=== PATIENT | female | born 1960 | race Caucasian/White ===

== ENCOUNTER → 2021-10-22 15:09 | Outpatient (BNVA) | payer MEDICARE, SELFPAY | PROVIDERS: Visit Provider Nurse Practitioner Family | DX: R10.2 Pelvic and perineal pain (principal) | CPT/HCPCS: 81003; 87086 ==

== ENCOUNTER → 2021-10-29 15:25 | Outpatient (BNVA) | payer MEDICARE, SELFPAY | PROVIDERS: Visit Provider Nurse Practitioner Family | DX: I10 Essential (primary) hypertension (principal); Z87.440 Personal history of urinary (tract) infections; F41.8 Other specified anxiety disorders | CPT/HCPCS: 80053; 80061; 81000; 84443; 85025 ==

== ENCOUNTER → 2022-02-03 12:43 | Outpatient (BNVA) | payer MEDICARE, SELFPAY | PROVIDERS: Visit Provider Internal Medicine | DX: L40.9 Psoriasis, unspecified (principal); M25.50 Pain in unspecified joint; Z11.59 Encounter for screening for other viral diseases; Z11.1 Encounter for screening for respiratory tuberculosis | CPT/HCPCS: 36415; 72202; 73120; 73560; 73600; 73620; 80053; 81003; 82550; 85025; 85651; 86140; 86160; 86162; 86200; 86235; 86255; 86376; 86431; 86480; 86704; 86803; 87340; 99204 ==

== ENCOUNTER → 2022-03-19 13:59 | Outpatient (BNVA) | payer MEDICARE, SELFPAY | PROVIDERS: PCP Internal Medicine; Visit Provider Internal Medicine | DX: L40.9 Psoriasis, unspecified (principal); M25.50 Pain in unspecified joint | CPT/HCPCS: 99214 ==

== ENCOUNTER 2022-04-20 08:32 | Day surgery (SDC) | payer MEDICARE, SELFPAY ==
[2022-04-16 11:56] VITALS: BMI 33.2
--- NOTE | 2022-04-20 07:46 | W.PM.OPSFHP ---
Same Day Surgery H&P Indication for Procedure/HPI DATE OF PROCEDURE: April 20, 2022 CHIEF COMPLAINT/INDICATIONFOR SURGICAL PROCEDURE: History of polyps PREOP DIAGNOSIS: History of polyps PLANNED PROCEDURE: Operation Date: 04/20/22 10:00 Proposed Procedures p Colonoscopy 74943,Z86.010(Not Applicable) - Joshua Perry MD Medications/Allergies* Home Medications Medication Instructions Recorded Confirmed Type alprazolam 0.25 mg tablet 0.25 mg PO BID PRN Anxiety 10/22/21 04/16/22 History calcium carbonate 500 mg calcium 500 mg PO DAILY 10/22/21 04/16/22 History (1,250 mg) chewable tablet (Calcium 500) docusate sodium 100 mg capsule 100 mg PO DAILY 10/22/21 04/16/22 History (Stool Softener) lactobacillus combination no.9 4 4,000 mmu cells PO DAILY 10/22/21 04/16/22 History billion cell capsule (Adult 50 Plus Probiotic) multivitamin 1 tab PO DAILY 10/22/21 04/16/22 History sumatriptan succinate 50 mg tablet See Rx Instructions PO .COMPLEX 10/22/21 04/16/22 History (Imitrex) vitamin B complex (B 1 tab PO DAILY 10/22/21 04/16/22 History Complex-Vitamin B12 tablet) vitamin E 200 unit capsule 200 unit PO DAILY 10/22/21 04/16/22 History hydrocodone 10 mg-acetaminophen 1 tab PO Q6H PRN Pain 02/03/22 04/16/22 History 325 mg tablet Allergies/Adverse Reactions Allergy/AdvReac Type Severity Reaction Status Date / Time No Known Allergies Allergy Verified 03/26/22 15:51 Pertinent History/Comorbid Conditions* Medical History (Updated 03/26/22 @ 15:56 by Joshua Perry MD) Hypertension Family History (Updated 10/22/21 @ 14:57 by Dena Hendricks LPN) Diabetes Father Hyperlipidemia Mother Cancer Father Mother BREAST Hypertension Father Social History Smoking and tobacco status: former smoker Alcohol intake: current Alcohol intake frequency: holidays/special occasions only Pertinent Exam Findings alert, oriented x 3, clear to auscultation bilaterally, regular rate & rhythm, operative site marked and procedure specific exam findings Recommendations Surgery/Procedure today Coding Level of Care Code Acute Transfer Clerk for Sim Young
[2022-04-20 09:16] VITALS: BP 126/80; PULSE 93; RESP 18; TEMP 36.1; O2SAT 96
[2022-04-20] MEDS: sodium chloride 0.9% 1,000 ML 30 ML IV (09:21)
--- NOTE | 2022-04-20 09:23 | P.ANESASSM_ITS ---
Pre-Anesthetic Assessment Height/Weight: Height 1.75 m Weight 102.058 kg Temp Pulse Resp BP Pulse Ox O2 Del Method 97.0 F L 93 18 126/80 96 04/20/22 09:16 04/20/22 09:16 04/20/22 09:16 04/20/22 09:16 04/20/22 09:16 04/20/22 09:16 Preop Diagnosis: personal history of polyps Operation Date: 04/20/22 10:00 Proposed Procedures p Colonoscopy 61896,Z86.010(Not Applicable) - Joshua Perry MD Familial anesthetic complications: None Was Beta Aristeo taken within 24 hours: N/A Was Clonidine taken within 24 hours: N/A Last intake: Intake Last Liquid Date 04/19/22 Last Liquid Time 22:00 Last Solid Date 04/18/22 Last Solid Time 23:00 Social Alcohol (Social) and No tobacco (Quit 1 year ago) Exam alert, oriented x 3, clear to auscultation bilaterally and regular rate & rhythm Airway Submandibular: within normal limits Cervical ROM: within normal limits Mallampati: Class III Dentition: loose (Left lower) History/ROS No significant history except as noted and No significant complaints Pulmonary Chronic Obstructive Pulmonary Disease and Exertional Dyspnea CV/HEM Arrythmia and Hypertension None reported Hepatic None reported GI None reported Metabolic Morbid Obesity [facility] [place] Lower Back Pain (Back surgery 01/2021) and Rheumatoid Arthritis Uses a cane to walk Neuropsych Anxiety, Depression and Neuropathy Anesthetic Plan ASA status: 3 Anesthesia: Anesthesia Evaluation, General and MAC Risk of > 500 ml blood loss (7ml/kg in children): No Medications/Allergies Home Medications Medication Instructions Recorded Confirmed Last Taken Type alprazolam 0.25 mg tablet 0.25 mg PO BID PRN Anxiety 10/22/21 04/20/22 1 Week Ago History ~04/13/22 calcium carbonate 500 mg calcium 500 mg PO DAILY 10/22/21 04/16/22 04/19/22 History (1,250 mg) chewable tablet (Calcium 500) docusate sodium 100 mg capsule 100 mg PO DAILY 10/22/21 04/16/22 04/19/22 History (Stool Softener) lactobacillus combination no.9 4 4,000 mmu cells PO DAILY 10/22/21 04/16/22 04/19/22 History billion cell capsule (Adult 50 Plus Probiotic) multivitamin 1 tab PO DAILY 10/22/21 04/16/22 04/19/22 History sumatriptan succinate 50 mg tablet See Rx Instructions PO .COMPLEX 10/22/21 04/20/22 1 Year Ago History (Imitrex) ~04/20/21 vitamin B complex (B 1 tab PO DAILY 10/22/21 04/16/22 04/19/22 History Complex-Vitamin B12 tablet) vitamin E 200 unit capsule 200 unit PO DAILY 10/22/21 04/16/22 04/19/22 History losartan 100 1 tab PO DAILY #90 tabs 10/29/21 04/16/22 04/20/22 06:00 Rx mg-hydrochlorothiazide 12.5 mg tablet fluconazole 150 mg tablet 150 mg PO Q3D 2 doses #2 tabs 10/30/21 04/16/22 04/19/22 Rx pseudoephedrine-guaifenesin ER 60 1 tab PO BID PRN cold symptoms #30 11/17/21 04/20/22 1 Year Ago Rx mg-600 mg tablet,extend release tabs ~04/20/21 12hr (Mucinex D) cyclobenzaprine 10 mg tablet See Rx Instructions .Route 01/20/22 04/16/22 04/19/22 Rx .COMPLEX #30 tabs hydrocodone 10 mg-acetaminophen 1 tab PO Q6H PRN Pain 02/03/22 04/16/22 04/18/22 History 325 mg tablet hydroxyzine HCl 10 mg tablet 10 mg PO TID PRN itching #20 tabs 03/19/22 04/20/22 Unknown Rx nystatin 100,000 unit/gram topical 1 applic topical DAILY #30 grams 03/19/22 04/16/22 04/19/22 Rx powder triamcinolone acetonide 0.1 % 1 applic topical DAILY #30 grams 03/19/22 04/16/22 04/19/22 Rx topical cream atorvastatin 40 mg tablet (Lipitor) 40 mg PO DAILY #90 tabs 03/26/22 04/16/22 04/19/22 Rx meloxicam 15 mg tablet 15 mg PO DAILY #90 tabs 03/26/22 04/16/22 04/19/22 Rx adalimumab 40 mg/0.8 mL 40 mg (0.8 mL) SUBCUT Q14D #4 ea 04/14/22 04/16/22 04/19/22 Rx subcutaneous pen kit (Humira Pen) venlafaxine 150 mg 150 mg PO DAILY 04/20/22 04/16/22 04/19/22 History capsule,extended release 24 hr (Effexor XR) Allergies Allergy/AdvReac Type Severity Reaction Status Date / Time No Known Allergies Allergy Verified 03/26/22 15:51 Current Medications Generic Name Dose Route Start Last Admin Trade Name Oliverq PRN Reason Stop Dose Admin Sodium Chloride 1,000 mls @ 30 mls/hr 04/20/22 08:45 04/20/22 09:21 Sodium Chloride 0.9% IV 30 mls/hr .Q24H FELIX Administration PFSH Anesthesia Medical History Hypertension Family History Father Diabetes Cancer Hypertension Mother Cancer BREAST Hyperlipidemia Social History Smoking and tobacco status: former smoker Alcohol intake: current Alcohol intake frequency: holidays/special occasions only Data Anesthesia Cardiac Studies: No Data to Display
[2022-04-20 10:08] VITALS: BP 151/74; PULSE 76; RESP 12; TEMP 36.2; O2SAT 100
[2022-04-20 10:25] VITALS: BP 130/79; PULSE 80; RESP 18; O2SAT 97
--- NOTE | 2022-04-20 14:48 | ANE.PACU2 ---
Inpatient post-anesthesia follow up: Airway intact: Yes Vital signs: Temperature 97.2 F Pulse Rate 80 Respiratory Rate 18 Blood Pressure 130/79 Pulse Oximetry 97 Oxygen Delivery Me thod Room Air Oxygen Flow Rate Fraction of Inspir ed Oxygen Hydration adequate: Yes Pain level: 1 Mental status: Baseline
== END 2022-04-20 10:33 | disposition home or self-care (01) ==
PROVIDERS: PCP Internal Medicine; Visit Provider Internal Medicine
PROC: 0DJD8ZZ Inspection of Lower Intestinal Tract, Via Natural or Artificial Opening Endoscopic (ICD-10-PCS; CPT 45378; principal; 2022-04-20 10:00)
DX: Z86.010 Personal history of colon polyps (principal); J44.9 Chronic obstructive pulmonary disease, unspecified; I10 Essential (primary) hypertension; E66.01 Morbid (severe) obesity due to excess calories; Z68.33 Body mass index [BMI] 33.0-33.9, adult; F41.9 Anxiety disorder, unspecified; F32.A Depression, unspecified; Z87.891 Personal history of nicotine dependence
CPT/HCPCS: 45378; J2704; J7030

== ENCOUNTER → 2022-05-26 10:12 | Outpatient (BNVA) | payer MEDICARE, SELFPAY | PROVIDERS: PCP Family Medicine Adult Medicine; Visit Provider Internal Medicine | DX: L40.9 Psoriasis, unspecified (principal); M25.50 Pain in unspecified joint | CPT/HCPCS: 36415; 80053; 85025; 85651; 86140; 99214 ==

== ENCOUNTER → 2022-11-05 15:14 | Outpatient (BNVA) | payer MEDICARE, BC, SELFPAY | PROVIDERS: PCP Family Medicine Adult Medicine; Visit Provider Internal Medicine | DX: L40.50 Arthropathic psoriasis, unspecified (principal); M25.50 Pain in unspecified joint; M79.673 Pain in unspecified foot; L40.9 Psoriasis, unspecified; M54.2 Cervicalgia | CPT/HCPCS: 36415; 72040; 80053; 85025; 85651; 86140; 99214 ==

== ENCOUNTER → 2023-03-03 15:14 | Outpatient (BNVA) | payer MEDICARE, SELFPAY | PROVIDERS: PCP Family Medicine Adult Medicine; Visit Provider Internal Medicine | DX: M25.50 Pain in unspecified joint (principal); L40.50 Arthropathic psoriasis, unspecified; L40.9 Psoriasis, unspecified; M54.2 Cervicalgia; M79.673 Pain in unspecified foot | CPT/HCPCS: 99214 ==

== ENCOUNTER 2023-03-31 08:57 | Outpatient (CLI) | payer MEDICARE, SELFPAY ==
[2023-03-31 09:16] LABS: Basophils % 0.4 %; Eosinophils # 0.2 10^3/uL (0.0-0.8); Eosinophils % 2.2 %; Hematocrit 40.3 % (36-47); Lymphocytes # 3.9 10^3/uL (0.8-4.8); Lymphocytes % 48.1 %; Mean Corpuscular HGB Conc 33.7 g/dL (30-55); Mean Corpuscular Hemoglobin 33.7 pg (27-33); Mean Platelet Volume 9.1 fL (7.4-10.4); Monocytes # 0.7 10^3/uL (0.2-0.9); Monocytes % 8.7 %; Neutrophils # 3.28 10^3/uL (1.8-7.7); Neutrophils % 40.4 %; Nucleated Red Blood Cells % 0 %; Platelet Count 282 10^3/cmm (157-399); Red Blood Count 4.03 10^6/uL (3.85-5.65); Red Cell Distribution Width 13.5 % (12.1-15.1); White Blood Count 8.13 10^3/uL (3.29-11.43)
[2023-03-31 09:40] LABS: Alanine Aminotransferase 26 U/L (0-33); Albumin Level 4.5 g/dL (3.5-5.2); Alkaline Phosphatase 59 U/L (35-105); Anion Gap 13.9 (5-19); Aspartate Amino Transferase 18 U/L (0-32); Blood Urea Nitrogen 16 mg/dL (8-23); Calcium 9.5 mg/dL (8.5-10.5); Carbon Dioxide 27 mmol/L (22-29); Chloride 103 mmol/L (98-107); Globulin 2.5 g/dL (1.3-4.6); Glomerular Filtration Rate 101.6 mL/min (90-130); Glucose 97 mg/dL (65-115); Osmolality Calculated 291 mOsm/kg (285-295); Potassium 3.9 mmol/L (3.5-5.1); Sodium 140 mmol/L (136-145); Total Bilirubin 0.5 mg/dL (0.15-1.2)
--- NOTE | 2023-06-03 15:54 | XR_ITS ---
WS: [email or web address] Right foot, 2 views, 06/03/2023 Clinical Data: M25.50 - Pain in unspecified joint Comparison: Right foot, 02/03/2022 Findings: There is a fusion of the talocalcaneal articulation with a long orthopedic screw. There is a orthoped ic pin in the distal right fibula. There are osteoarthritic changes of the Lisfranc joint. There are minimal osteoarthritic changes of the right first toe IP joint and of the DIP joints of the right sec ond through fifth toes. There are no fractures or dislocations. The soft tissues are unremarkable. Impression: Stable osteoarthritis of the right foot and arthrodesis of the right ankle and right talocalcaneal ar ticulation.
--- NOTE | 2023-06-03 15:54 | XR_ITS ---
WS: [email or web address] Left foot, 3 views, 06/03/2023 Clinical Data: M25.50 - Pain in unspecified joint Comparison: Left foot, 02/03/2022 Findings: There are postoperative changes of the left great toe with an osteotomy of the distal left first meta tarsal and osteotomy of the medial base of the left first proximal phalanx. There is osteoarthritic c hange of the first MTP joint. There are minimal osteoarthritic changes of the DIP joints of the left second through fifth toes. There is osteoarthritis of all the intertarsal joints. There is a plantar spur and an Achilles spur. There is a long rocco in the distal left fibula reducing an old fibular frac ture. The soft tissues are normal. There are no new fractures or dislocations. Impression: Stable osteoarthritis and postoperative changes
== END 2023-03-31 08:58 | disposition home or self-care (01) ==
LOC: LAB 09:00
PROVIDERS: PCP Family Medicine Adult Medicine; Visit Provider Internal Medicine
DX: M25.50 Pain in unspecified joint (principal); L40.50 Arthropathic psoriasis, unspecified
CPT/HCPCS: 80053; 85025

== ENCOUNTER → 2023-06-03 14:38 | Outpatient (BNVA) | payer MEDICARE, SELFPAY | PROVIDERS: PCP Family Medicine Adult Medicine; Visit Provider Internal Medicine | DX: M25.50 Pain in unspecified joint (principal); L40.50 Arthropathic psoriasis, unspecified; E03.9 Hypothyroidism, unspecified; L40.9 Psoriasis, unspecified; M54.2 Cervicalgia; M79.673 Pain in unspecified foot | CPT/HCPCS: 36415; 73620; 80053; 83735; 84443; 84550; 85025; 85651; 86140; 99214 ==

== ENCOUNTER → 2023-10-28 08:53 | Outpatient (BNVA) | payer MEDICARE, SELFPAY | PROVIDERS: PCP Family Medicine Adult Medicine; Visit Provider Family Medicine Adult Medicine | DX: E78.5 Hyperlipidemia, unspecified (principal); I10 Essential (primary) hypertension | CPT/HCPCS: 80053; 80061 ==

== ENCOUNTER 2023-12-02 09:40 | Outpatient (CLI) | payer MEDICARE, SELFPAY ==
--- NOTE | 2023-12-02 10:00 | MM_ITS ---
WS: [email or web address] BILATERAL SCREENING DIGITAL TOMOSYNTHESIS MAMMOGRAM WITH CAD HISTORY: screen COMPARISON: 03/24/2021, 03/16/2018 Bilateral CC and MLO views with tomosynthesis and synthetic mammography submitted. Computer aided det ection analyzed. Breast composition: There are scattered areas of fibroglandular density. No suspicious masses, microc alcifications or architectural distortion. Benign calcifications in each breast. MM/[place] [id number] IMPRESSION: BI-RADS: 2-Benign FOLLOW UP: 1 Year Follow-up
== END 2023-12-02 09:41 | disposition home or self-care (01) ==
LOC: RAD 09:41
PROVIDERS: PCP Family Medicine Adult Medicine; Visit Provider Family Medicine Adult Medicine
DX: Z12.31 Encounter for screening mammogram for malignant neoplasm of breast (principal)
CPT/HCPCS: 77063; 77067

== ENCOUNTER → 2024-01-03 14:25 | Outpatient (BNVA) | payer MEDICARE, SELFPAY | PROVIDERS: PCP Family Medicine Adult Medicine; Visit Provider Internal Medicine Rheumatology | DX: L40.50 Arthropathic psoriasis, unspecified (principal); L40.0 Psoriasis vulgaris; Z79.899 Other long term (current) drug therapy; Z71.85 Encounter for immunization safety counseling; F17.210 Nicotine dependence, cigarettes, uncomplicated | CPT/HCPCS: 36415; 80076; 82306; 82565; 84439; 84443; 85025; 85651; 86140; 99214 ==

== ENCOUNTER 2024-02-07 10:10 | Outpatient (CLI) | payer MEDICARE, SELFPAY ==
[2024-02-07 10:55] LABS: Basophils # 0.1 10^3/uL (0.0-0.1); Basophils % 0.8 %; Eosinophils # 0.2 10^3/uL (0.0-0.8); Eosinophils % 3.1 %; Hematocrit 39.7 % (36-47); Lymphocytes # 3.3 10^3/uL (0.8-4.8); Lymphocytes % 51.7 %; Mean Corpuscular Hemoglobin 33.1 pg (27-33); Mean Corpuscular Volume 100.3 fl (85-98); Mean Platelet Volume 10.2 fL (7.4-10.4); Monocytes # 0.6 10^3/uL (0.2-0.9); Monocytes % 9.9 %; Neutrophils # 2.21 10^3/uL (1.8-7.7); Neutrophils % 34.2 %; Nucleated Red Blood Cells % 0 %; Platelet Count 296 10^3/cmm (157-399); Red Blood Count 3.96 10^6/uL (3.85-5.65); Red Cell Distribution Width 12.4 % (12.1-15.1); White Blood Count 6.46 10^3/uL (3.29-11.43)
[2024-02-07 11:20] LABS: Alanine Aminotransferase 28 U/L (0-33); Albumin Level 4.2 g/dL (3.5-5.2); Alkaline Phosphatase 59 U/L (35-105); Aspartate Amino Transferase 15 U/L (0-32); Globulin 2.5 g/dL (1.3-4.6); Total Bilirubin 0.2 mg/dL (0.15-1.2); Total Protein 6.7 g/dL (6.6-8.7)
[2024-02-07 11:24] LABS: Erythrocyte Sedimentation Rate 1 mm/hr (0-15)
== END 2024-02-07 10:11 | disposition home or self-care (01) ==
LOC: LAB 10:13
PROVIDERS: PCP Family Medicine Adult Medicine; Visit Provider Internal Medicine Rheumatology
DX: L40.50 Arthropathic psoriasis, unspecified (principal); Z79.899 Other long term (current) drug therapy
CPT/HCPCS: 36415; 80076; 82565; 85025; 85651; 86140

== ENCOUNTER → 2024-02-24 11:30 | Outpatient (BNVA) | payer MEDICARE, SELFPAY | PROVIDERS: PCP Family Medicine Adult Medicine; Visit Provider Podiatrist Foot & Ankle Surgery | DX: M79.671 Pain in right foot (principal); M96.0 Pseudarthrosis after fusion or arthrodesis; M19.071 Primary osteoarthritis, right ankle and foot; Z98.1 Arthrodesis status; M21.371 Foot drop, right foot | CPT/HCPCS: 73630; 99203 ==

== ENCOUNTER 2024-03-21 15:36 | Outpatient (CLI) | payer MEDICARE, SELFPAY | END 2024-03-21 15:37 | disposition home or self-care (01) | LOC: SPT 15:37 | PROVIDERS: PCP Family Medicine Adult Medicine; Visit Provider Podiatrist Foot & Ankle Surgery | DX: Z46.89 Encounter for fitting and adjustment of other specified devices (principal); M79.673 Pain in unspecified foot; M21.371 Foot drop, right foot; Z98.1 Arthrodesis status; M19.071 Primary osteoarthritis, right ankle and foot; M96.0 Pseudarthrosis after fusion or arthrodesis | CPT/HCPCS: L3030 ==

== ENCOUNTER → 2024-04-18 10:05 | Outpatient (BNVA) | payer MEDICARE, SELFPAY | PROVIDERS: PCP Family Medicine Adult Medicine; Visit Provider Family Medicine | DX: R05.9 Cough, unspecified (principal); R05.3 Chronic cough | CPT/HCPCS: 71046; 87400; 87426 ==

== ENCOUNTER → 2024-05-15 14:11 | Outpatient (BNVA) | payer MEDICARE, SELFPAY | PROVIDERS: PCP Family Medicine Adult Medicine; Visit Provider Internal Medicine Rheumatology | DX: Z79.899 Other long term (current) drug therapy (principal); L40.50 Arthropathic psoriasis, unspecified; L40.0 Psoriasis vulgaris; Z71.85 Encounter for immunization safety counseling | CPT/HCPCS: 36415; 80076; 82565; 85025; 85651; 86140; 99214 ==

== ENCOUNTER → 2024-07-20 09:59 | Outpatient (BNVA) | payer MEDICARE, SELFPAY | PROVIDERS: PCP Family Medicine Adult Medicine; Visit Provider Nurse Practitioner | DX: R05.9 Cough, unspecified (principal) | CPT/HCPCS: 87400 ==

== ENCOUNTER → 2024-08-04 14:09 | Outpatient (BNVA) | payer MEDICARE, SELFPAY | PROVIDERS: PCP Family Medicine; Visit Provider Family Medicine | DX: I10 Essential (primary) hypertension (principal); E78.2 Mixed hyperlipidemia | CPT/HCPCS: 80053; 85025 ==

== ENCOUNTER 2024-08-14 11:48 | Outpatient (CLI) | payer MEDICARE, SELFPAY ==
[2024-08-14 12:30] LABS: Basophils % 0.5 %; Eosinophils # 0.3 10^3/uL (0.0-0.8); Eosinophils % 3.9 %; Hematocrit 39.5 % (36-47); Lymphocytes # 3.1 10^3/uL (0.8-4.8); Lymphocytes % 47.7 %; Mean Corpuscular HGB Conc 32.9 g/dL (30-55); Mean Corpuscular Hemoglobin 31.8 pg (27-33); Mean Corpuscular Volume 96.6 fl (85-98); Mean Platelet Volume 9.4 fL (7.4-10.4); Monocytes # 0.8 10^3/uL (0.2-0.9); Monocytes % 12.5 %; Neutrophils # 2.27 10^3/uL (1.8-7.7); Neutrophils % 35.2 %; Nucleated Red Blood Cells % 0 %; Platelet Count 465 10^3/cmm (157-399); Red Blood Count 4.09 10^6/uL (3.85-5.65); White Blood Count 6.42 10^3/uL (3.29-11.43)
[2024-08-14 12:32] LABS: Erythrocyte Sedimentation Rate 4 mm/hr (0-15)
[2024-08-14 12:44] LABS: Alanine Aminotransferase 18 U/L (0-33); Albumin Level 4.3 g/dL (3.5-5.2); Alkaline Phosphatase 61 U/L (35-105); Aspartate Amino Transferase 15 U/L (0-32); Globulin 2.6 g/dL (1.3-4.6); Glomerular Filtration Rate 124.6 mL/min (90-130); Total Bilirubin 0.3 mg/dL (0.15-1.2); Total Protein 6.9 g/dL (6.6-8.7)
== END 2024-08-14 11:49 | disposition home or self-care (01) ==
LOC: LAB 11:52
PROVIDERS: PCP Family Medicine; Visit Provider Internal Medicine Rheumatology
DX: Z79.899 Other long term (current) drug therapy (principal); L40.50 Arthropathic psoriasis, unspecified
CPT/HCPCS: 80076; 82565; 85025; 85651; 86140

== ENCOUNTER → 2024-09-04 14:24 | Outpatient (BNVA) | payer MEDICARE, SELFPAY | PROVIDERS: PCP Family Medicine; Visit Provider Internal Medicine Rheumatology | DX: L40.50 Arthropathic psoriasis, unspecified (principal); L40.0 Psoriasis vulgaris; Z79.899 Other long term (current) drug therapy; Z71.85 Encounter for immunization safety counseling | CPT/HCPCS: 99214 ==

== ENCOUNTER 2024-12-13 10:52 | Outpatient (CLI) | payer MEDICARE, SELFPAY ==
[2024-12-13 12:01] LABS: Basophils % 0.4 %; Eosinophils # 0.2 10^3/uL (0.0-0.8); Eosinophils % 3.2 %; Hematocrit 39.8 % (36-47); Lymphocytes # 2.8 10^3/uL (0.8-4.8); Lymphocytes % 48.6 %; Mean Corpuscular HGB Conc 32.2 g/dL (30-55); Mean Corpuscular Hemoglobin 31.8 pg (27-33); Mean Platelet Volume 9.6 fL (7.4-10.4); Monocytes # 0.6 10^3/uL (0.2-0.9); Monocytes % 9.7 %; Neutrophils # 2.16 10^3/uL (1.8-7.7); Neutrophils % 37.9 %; Nucleated Red Blood Cells % 0 %; Platelet Count 325 10^3/cmm (157-399); Red Blood Count 4.02 10^6/uL (3.85-5.65); Red Cell Distribution Width 13.1 % (12.1-15.1); White Blood Count 5.68 10^3/uL (3.29-11.43)
[2024-12-13 12:07] LABS: Erythrocyte Sedimentation Rate 3 mm/hr (0-15)
[2024-12-13 12:23] LABS: Alanine Aminotransferase 18 U/L (0-33); Albumin Level 4.2 g/dL (3.5-5.2); Alkaline Phosphatase 61 U/L (35-105); Aspartate Amino Transferase 17 U/L (0-32); Bilirubin Direct 0.15 mg/dL (0.00-0.30); Globulin 2.6 g/dL (1.3-4.6); Glomerular Filtration Rate 124.6 mL/min (90-130); Total Bilirubin 0.3 mg/dL (0.15-1.2); Total Protein 6.8 g/dL (6.6-8.7)
== END 2024-12-13 10:53 | disposition home or self-care (01) ==
PROVIDERS: PCP Family Medicine; Visit Provider Internal Medicine Rheumatology
DX: Z79.899 Other long term (current) drug therapy (principal); L40.50 Arthropathic psoriasis, unspecified
CPT/HCPCS: 36415; 80076; 82565; 85025; 85651; 86140

== ENCOUNTER → 2025-01-01 13:23 | Outpatient (BNVA) | payer MEDICARE, SELFPAY | PROVIDERS: PCP Family Medicine; Visit Provider Internal Medicine Rheumatology | DX: L40.50 Arthropathic psoriasis, unspecified (principal); L40.0 Psoriasis vulgaris; Z79.899 Other long term (current) drug therapy; Z71.85 Encounter for immunization safety counseling | CPT/HCPCS: 99214 ==

== ENCOUNTER → 2025-04-04 11:14 | Outpatient (BNVA) | payer MEDICARE, SELFPAY | PROVIDERS: PCP Family Medicine; Visit Provider Family Medicine | DX: Z79.899 Other long term (current) drug therapy (principal) | CPT/HCPCS: 80076; 82565; 85025; 85651; 86140 ==

== ENCOUNTER → 2025-05-22 12:54 | Outpatient (BNVA) | payer MEDICARE, SELFPAY | PROVIDERS: PCP Family Medicine; Visit Provider Internal Medicine Rheumatology | DX: L40.50 Arthropathic psoriasis, unspecified (principal); L40.0 Psoriasis vulgaris; Z79.899 Other long term (current) drug therapy; Z71.85 Encounter for immunization safety counseling | CPT/HCPCS: 99214 ==

== ENCOUNTER 2025-06-07 10:10 | Inpatient (IN) | payer MEDICARE, SELFPAY ==
[2025-06-07 10:34] VITALS: BP 144/83; PULSE 103; TEMP 36.5; O2SAT 99
--- NOTE | 2025-06-07 10:51 | XR_ITS ---
WS: [email or web address] XR chest 1V portable [id number] REASON FOR EXAM: ams FINDINGS: The chest is unchanged compared to 04/18/2024. There is moderate tortuosity of the thoracic aorta. Normal heart size. Calcified granulomatous disease bilaterally. No acute pulmonary parenchymal or pleural abnormality is identified. Moderate thoracic dextroscoliosis with minimal degenerative spondylosis. XR/XR chest 1V portable [id number] IMPRESSION: Stable chest without acute abnormality.
--- NOTE | 2025-06-07 10:51 | ECG_ITS ---
[facility] Date: 2025-06-07 Pat Name: Stephanie Lopez Department: Room: Gender: Female Food Service Coordinator: : 1960 Requested By: Philip Riojas Order Number: [id number] Mayda MD: Edilberto Goldberg M.D. Measurements Intervals [place] Rate: 79 P: -6 MI: 129 QRS: 55 QRSD: 92 T: 6 QT: 412 QTc: 474 Interpretive Statements SINUS RHYTHM No previous ECG available for comparison Electronically Signed On 06-07-2025 17:18:29 ELECTRIC METER INSPECTOR by Edilberto Goldberg M.D. [id number]
--- NOTE | 2025-06-07 11:00 | CT_ITS ---
WS: [email or web address] CT head wo con* [id number] REASON FOR EXAM: ams IV CONTRAST ADMINISTERED: None TECHNIQUE Multiple axial images without intravenous contrast. NO COMPARISON TOTAL EXAM DLP: 1153.[address] scans at [facility] use at least one of these dose optimization techniques: automated exposure control; mA and/or kV adjustment per patient size (includes targeted exams where dose is matched to clinical indication); or iterative reconstruction. FINDINGS: No midline shift or other significant mass effect. No findings of subarachnoid, subdural, or epidural hemorrhage. No focal brain parenchymal abnormality. Normal ventricles and CSF spaces. CT/CT head wo con* [id number] IMPRESSION: No acute intracranial abnormality.
--- NOTE | 2025-06-07 11:00 | CTR_ITS ---
PROCEDURE INFORMATION: Exam: CT Abdomen And Pelvis With Contrast Exam date and time: 06/07/2025 12:10 PM Age: 64 years old Clinical indication: Vomiting TECHNIQUE: Imaging protocol: Computed tomography of the abdomen and pelvis with contrast. Radiation optimization: All CT scans at this facility use at least one of these dose optimization techniques: automated exposure control; mA and/or kV adjustment per patient size (includes targeted exams where dose is matched to clinical indication); or iterative reconstruction. Contrast material: [id number]; Contrast volume: 100 ml; Contrast route: INTRAVENOUS (IV); COMPARISON: CR XR sacroiliac jts m 3V [id number] 02/03/2022 2:26 PM RADIATION DOSE METRICS: Total DLP (mGy-cm): 646.43 FINDINGS: Tubes, catheters and devices: Dense structure overlying the mitral annulus, either calcification or implant. Liver: Normal. No mass. Gallbladder and biliary ducts: Multiple gallstones are present. No pericholecystic inflammatory changes to suggest cholecystitis. There is no evidence of biliary ductal dilation. Pancreas: 1 cm gas bubble near the ampulla of Vater likely reflects a duodenal diverticulum. No pancreas mass or peripancreatic inflammatory changes. Spleen: The spleen is normal. Adrenal glands: The adrenal glands are normal. Kidneys and ureters: Small renal calcifications noted bilaterally appear vascular. Nonspecific low-density foci of the kidneys statistically favor benign cysts, no follow-up imaging recommended, as large as 12 mm on the left. No hydronephrosis or hydroureter. A mild degree of urothelial enhancement is noted in the renal pelves which could reflect mild urinary tract infection. Stomach and bowel: There is a suggestion of mural thickening in the duodenum and stomach, although the stomach is nondistended. No bowel dilatation. No pericolonic inflammatory changes. Portions of the colon are collapsed and mural thickening could be present. Appendix: Normal appendix. Intraperitoneal space: No free intraperitoneal fluid or gas. Vasculature: Atherosclerotic calcification most significantly affecting the abdominal aorta and iliac arteries. No abdominal aortic aneurysm. Lymph nodes: Unremarkable. No enlarged lymph nodes. Urinary bladder: Mild diffuse bladder wall thickening which should be correlated for the possibility of cystitis. Reproductive: Uterus is unremarkable. No suspicious adnexal lesion seen. Bones/joints: There has been previous laminectomy and posterior metallic fusion involving the L2 through L5 levels. Severe degenerative disc changes are present at T12-L1, including subchondral sclerosis, vacuum disc phenomenon and fragmented depression of the inferior T12 endplate. 17 x 19 x 10 mm dense epidural mass posterior to the L1 vertebral body results in moderate to severe spinal canal narrowing. Soft tissues: Unremarkable. CT/CT abdomen pelvis w con* [id number] IMPRESSION: 1. There is a suggestion of mural thickening in the duodenum and stomach, although the stomach is nondistended. The appearance is concerning for gastroenteritis, which should be assessed clinically. 2. Portions of the colon are collapsed and mural thickening could be present. Correlate clinically for the possibility of colitis. 3. Severe degenerative disc changes are present at T12-L1, including subchondral sclerosis, vacuum disc phenomenon and fragmented depression of the inferior T12 endplate. Although the endplate changes appear subacute, the possibility of T12 compression fracture is considered. 4. 17 x 19 x 10 mm dense epidural mass posterior to the L1 vertebral body results in moderate to severe spinal canal narrowing. The structure contains a bubble of gas and likely represents a large disc extrusion, with less likely etiologies including hematoma and epidural abscess. MRI evaluation is recommended. 5. Mild bladder wall thickening and mild degree of urothelial enhancement is noted in the renal pelves which could reflect mild urinary tract infection. COMMENTS: Consistent with the [employer]'s Incidental Findings Committee white paper (J Am Matilda Radiol 2018): Any incidental renal lesion less than 1 cm or classified as too small to characterize, or any incidental cystic renal lesion characterized as simple-appearing, is likely benign. No follow-up imaging is recommended for these lesions per consensus recommendations based on imaging criteria.
[2025-06-07 11:04] LABS: Hematocrit 47.4 % (36-47); Hemoglobin 15.80 g/dL (11.27-16.99); Mean Corpuscular HGB Conc 33.3 g/dL (30-55); Mean Corpuscular Hemoglobin 31.0 pg (27-33); Mean Corpuscular Volume 93.1 fl (85-98); Nucleated Red Blood Cells % 0 %; Platelet Count 385 10^3/cmm (157-399); Red Blood Count 5.09 10^6/uL (3.85-5.65); White Blood Count 11.28 10^3/uL (3.29-11.43)
--- NOTE | 2025-06-07 11:13 | W.ED.AMS ---
HPI - Altered Mental Status General: Chief Complaint: Altered Mental Status Stated Complaint: n/v/d, intermittent fever, AMS Time Seen by Provider: 06/07/25 10:51 Source: patient Mode of arrival: ambulatory Limitations: no limitations History of Present Illness: 64-year-old female who is here with states that she been having vomiting diarrhea since Wednesday. States over the last 2 days she has been having some lethargy and slight confusion. Patient here is answering my questions appropriately but is slow to respond. Denies any headache fever states she is feels very tired and weak. Denies any abdominal pain or chest pain Related Data Home Medications ?Medication ?Instructions ?Recorded ?Confirmed calcium carbonate (Calcium 500) 500 mg PO DAILY 10/22/21 06/07/25 multivitamin 1 tab PO DAILY 10/22/21 06/07/25 sumatriptan succinate 50 mg tablet See Rx Instructions PO .COMPLEX 10/22/21 06/07/25 (Imitrex) amlodipine 10 mg tablet 10 mg PO DAILY 06/07/25 06/07/25 leflunomide 20 mg tablet 20 mg PO DAILY 06/07/25 06/07/25 losartan 100 1 tab PO DAILY 06/07/25 06/07/25 mg-hydrochlorothiazide 12.5 mg tablet morphine 15 mg tablet,extended 15 mg PO Q8H 06/07/25 06/07/25 release propranolol 60 mg capsule,24 60 mg PO DAILY 06/07/25 06/07/25 hr,extended release tizanidine 4 mg capsule 4 mg PO DAILY PRN muscle spasticity 06/07/25 06/07/25 triamcinolone acetonide 0.1 % 1 applic topical DAILY PRN Skin 06/07/25 06/07/25 topical cream Irritation venlafaxine 150 mg 150 mg PO DAILY 06/07/25 06/07/25 capsule,extended release 24 hr Previous Rx's ?Medication ?Instructions ?Recorded sole supports #1 ea 02/24/24 oxybutynin chloride 15 mg 15 mg PO DAILY incontinence #90 11/17/24 tablet,extended release 24 hr tabs atorvastatin 40 mg tablet (Lipitor) 40 mg PO DAILY #90 tabs 12/01/24 albuterol sulfate 90 mcg/actuation 1 inh inhalation QID PRN shortness 02/20/25 aerosol inhaler of breath or wheezing #6.7 grams meloxicam 15 mg tablet 15 mg PO DAILY #90 tabs 02/22/25 clobetasol 0.05 % topical ointment 1 applic topical BID 2 weeks #45 05/22/25 grams nystatin 100,000 unit/gram topical 1 applic topical BID PRN apply to 05/22/25 powder irritated area under abdomen #30 grams alprazolam 0.5 mg tablet 0.5 mg PO BID PRN Anxiety #60 tabs 05/28/25 secukinumab 150 mg/mL subcutaneous 300 mg (2 mL) SUBCUT .[id number] #2 mL 06/04/25 pen injector (Cosentyx Pen 300 mg/2 pens () secukinumab 150 mg/mL subcutaneous See Rx Instructions SUBCUT 06/04/25 pen injector (Cosentyx Pen) .COMPLEX #5 mL Allergies Allergy/AdvReac Type Severity Reaction Status Date / Time No Known Allergies Allergy Verified 06/07/25 10:42 [facility] PFSH: Medical History (Updated 06/07/25 @ 15:13 by Betty Van MD) Enrolled in chronic care management Cannabis use disorder Tobacco use disorder Moderate major depression Anxiety Immunization counseling High risk medication use Plaque psoriasis Peripheral neuropathy Mixed urge and stress incontinence BMI greater than 30 Encounter for monitoring opioid maintenance therapy Migraine Smoker Hypertension Hyperlipidemia Back pain with history of spinal surgery History of ganglion cyst Surgical History History of tonsillectomy History of ankle surgery BILATERAL X TOTAL 15 H/O shoulder replacement BILATERAL History of carpal tunnel release BILATERAL History of lumbar fusion History of colonoscopy History of cone biopsy of cervix History of breast biopsy Family History Father Diabetes Cancer Hypertension Mother Cancer BREAST Hyperlipidemia Social History (Updated 05/22/25 @ 13:24 by Ana Maria Campuzano LPN) Smoking and tobacco/nicotine status: current every day tobacco/nicotine user cigarettes Packs smoked per day: 1 Quit status (tobacco/nicotine): has tried quititng Alcohol intake: current Alcohol intake frequency: holidays/special occasions only Physical Exam Const: COMMON NORMALS: patient oriented x3 and healthy appearing HENMT: COMMON NORMALS: normocephalic and atraumatic HEAD & SCALP: normocephalic and atraumatic Eye: COMMON NORMALS: Equal, round and reactive pupils present and EOMs intact bilaterally PUPIL: Yes Equal, round and reactive pupils present Neck/C-Spine: COMMON NORMALS: full ROM and supple Chest: COMMONS NORMALS: normal inspection of the chest and normal palpation of entire chest wall Resp: COMMON NORMALS: normal respiratory effort, No retractions, No use of accessory muscles and clear to auscultation bilaterally AUSCULTATION: clear to auscultation bilaterally Cardio: COMMON NORMALS: regular rate, regular rhythm and No murmurs present (Cardio) RATE: regular rate RHYTHM: regular rhythm GI: COMMON NORMALS: Normal to inspection, nondistended, normoactive bowel sounds present, Soft to palpation, non-tender and no masses PALPATION: Yes Soft to palpation Extremity: COMMON NORMALS: normal to inspection and full ROM Neuro: COMMON NORMALS: patient oriented x3, moves all extremities and no focal motor deficits Psych: COMMON NORMALS: mental status grossly normal, Normal thought process present and cooperative THOUGHT PROCESS: Normal thought process present Skin: COMMON NORMALS: no rashes or lesions noted and no wounds GENERAL SKIN EXAM: no rashes or lesions noted Course Vital Signs: Vital signs: Vital Signs Temperature 97.7 F 06/07/25 10:34 Pulse Rate 75 06/07/25 14:33 Blood Pressure 122/94 06/07/25 14:33 Pulse Oximetry 98 06/07/25 14:33 Oxygen Delivery Me thod Room Air 06/07/25 14:33 MDM - Altered Mental Status Medical Decision Making 64-year-old female presents here with altered mental status differential includes dehydration, CVA, infection. Patient CT here showed no signs of stroke her last known normal was 2 days ago she has no focal deficits here. She does appear dehydrated has hypokalemia as well. Did give her IV fluids she has no signs of infection chest x-ray was interpreted by me showed no acute abnormalities. I have spoke to Dr. Aranda and will admit. Did speak to spine surgeon Dr. Austin will consult due to findings on abdomen CT she has no severe back pain here and no weakness no sign of definite epidural or hematoma abscess EKG interpreted by me 1104 normal sinus rhythm heart rate [address] elevation QRS 92 QTc 447 Medical Records I reviewed the patient's medical records. Lab Data I reviewed the patient's lab results. 12/11/25 10:54 06/07/25 10:54 Radiology Impressions Chest X-Ray 06/07/25 10:51 IMPRESSION: Stable chest without acute abnormality. Abdomen/Pelvis CT 06/07/25 11:00 IMPRESSION: 1. There is a suggestion of mural thickening in the duodenum and stomach, although the stomach is nondistended. The appearance is concerning for gastroenteritis, which should be assessed clinically. 2. Portions of the colon are collapsed and mural thickening could be present. Correlate clinically for the possibility of colitis. 3. Severe degenerative disc changes are present at T12-L1, including subchondral sclerosis, vacuum disc phenomenon and fragmented depression of the inferior T12 endplate. Although the endplate changes appear subacute, the possibility of T12 compression fracture is considered. 4. 17 x 19 x 10 mm dense epidural mass posterior to the L1 vertebral body results in moderate to severe spinal canal narrowing. The structure contains a bubble of gas and likely represents a large disc extrusion, with less likely etiologies including hematoma and epidural abscess. MRI evaluation is recommended. 5. Mild bladder wall thickening and mild degree of urothelial enhancement is noted in the renal pelves which could reflect mild urinary tract infection. COMMENTS: Consistent with the [employer]'s Incidental Findings Committee white paper (J Am Matilda Radiol 2018): Any incidental renal lesion less than 1 cm or classified as too small to characterize, or any incidental cystic renal lesion characterized as simple-appearing, is likely benign. No follow-up imaging is recommended for these lesions per consensus recommendations based on imaging criteria. ADDENDUM: 06/07/25 1342 Findings were discussed with BETTY VAN at 06/07/2025 1:40 PM NURSE SUPERVISOR. Head CT 06/07/25 11:00 IMPRESSION: No acute intracranial abnormality. Laboratory Results WBC 11.28 10^3/uL (3.29-11.43) 06/07/25 10:54 RBC 5.09 10^6/uL (3.85-5.65) 06/07/25 10:54 Hgb 15.80 g/dL (11.27-16.99) 06/07/25 10:54 Hct 47.4 % (36-47) H 06/07/25 10:54 MCV 93.1 fl (85-98) 06/07/25 10:54 MCH 31.0 pg (27-33) 06/07/25 10:54 MCHC 33.3 g/dL (30-55) 06/07/25 10:54 RDW 14.1 % (12.1-15.1) 06/07/25 10:54 Plt Count 385 10^3/cmm (157-399) 06/07/25 10:54 MPV 9.5 fL (7.4-10.4) 06/07/25 10:54 Neut % (Auto) 57.6 % 06/07/25 10:54 Lymph % (Auto) 30.4 % 06/07/25 10:54 [place] % (Auto) 11.5 % 06/07/25 10:54 Eos % (Auto) 0.0 % 06/07/25 10:54 Baso % (Auto) 0.2 % 06/07/25 10:54 Neut # (Auto) 6.50 10^3/uL (1.8-7.7) 06/07/25 10:54 Lymph # (Auto) 3.4 10^3/uL (0.8-4.8) 06/07/25 10:54 [place] # (Auto) 1.3 10^3/uL (0.2-0.9) H 06/07/25 10:54 Eos # (Auto) 0.0 10^3/uL (0.0-0.8) 06/07/25 10:54 Baso # (Auto) 0.0 10^3/uL (0.0-0.1) 06/07/25 10:54 Nucleated RBC % (auto) 0 % 06/07/25 10:54 Nucleated RBCs # 0.0 /100WBC 06/07/25 10:54 Sodium 134 mmol/L (136-145) L 06/07/25 10:54 Potassium 2.8 mmol/L (3.5-5.1) L* 06/07/25 10:54 Chloride 94 mmol/L (98-107) L 06/07/25 10:54 Carbon Dioxide 21 mmol/L (22-29) L 06/07/25 10:54 Anion Gap 21.8 (5-19) H 06/07/25 10:54 BUN 46 mg/dL (8-23) H 06/07/25 10:54 Creatinine 0.9 mg/dL (0.5-0.9) 06/07/25 10:54 GFR Calculation 63.2 mL/min (90-130) L 06/07/25 10:54 Glucose 131 mg/dL (65-115) H 06/07/25 10:54 Calculated Osmolality 292 mOsm/kg (285-295) 06/07/25 10:54 Calcium 9.4 mg/dL (8.5-10.5) 06/07/25 10:54 Magnesium 2.6 mg/dL (1.7-2.3) H 06/07/25 10:54 Total Bilirubin 1.2 mg/dL (0.15-1.2) 06/07/25 10:54 AST 18 U/L (0-32) 06/07/25 10:54 ALT 18 U/L (0-33) 06/07/25 10:54 Alkaline Phosphatase 62 U/L (35-105) 06/07/25 10:54 Ammonia 16 umol/L (11-51) 06/07/25 10:54 Total Protein 7.6 g/dL (6.6-8.7) 06/07/25 10:54 Albumin 4.7 g/dL (3.5-5.2) 06/07/25 10:54 Globulin 2.9 g/dL (1.3-4.6) 06/07/25 10:54 Lipase 29 U/L (13-60) 06/07/25 10:54 Urine Color Yellow (Yellow) 06/07/25 12:22 Urine Appearance Clear (CLEAR) 06/07/25 12:22 Urine pH 6.5 (5-7) 06/07/25 12:22 Ur Specific [place] 1.077 (1.005-1.030) H 06/07/25 12:22 Urine Protein 1+ (Negative) A 06/07/25 12:22 Urine Glucose (UA) Negative (Normal) 06/07/25 12:22 Urine Ketones Negative (Negative) 06/07/25 12:22 Urine Blood Non-haemolysed trace (Negative) 06/07/25 12:22 Urine Nitrate Negative (Negative) 06/07/25 12:22 Urine Bilirubin Negative (Negative) 06/07/25 12:22 Urine Urobilinogen 1.0 mg/dL (Negative) 06/07/25 12:22 Ur Leukocyte Esterase Negative (Negative) 06/07/25 12:22 Urine RBC 0-2 /hpf (0-2) 06/07/25 12:22 Urine WBC 0-5 /hpf (0-5) 06/07/25 12:22 Ur Squamous Epith Cells 0-5 /hpf (0-5) 06/07/25 12:22 Amorphous Sediment Not Reportable 06/07/25 12:22 Urine Bacteria Trace /hpf (NONE) 06/07/25 12:22 Hyaline Casts 0.40 /lpf 06/07/25 12:22 Influenza A (PCR) Negative (Negative) 06/07/25 11:14 Influenza Type B (PCR) Negative (Negative) 06/07/25 11:14 RSV (PCR) Negative (Negative) 06/07/25 11:14 SARS-CoV-2 (PCR) Negative (Negative) 06/07/25 11:14 All radiology interpretation(s) finalized by discharge Discharge Plan Discharge Patient Disposition: Admitted As Inpatient Clinical Impression: Altered mental status, Diarrhea, Dehydration Condition: Stable Coding Level of Care Code ED Dbas for Sim Young
[2025-06-07 11:16] VITALS: BP 127/72; PULSE 80; O2SAT 99
[2025-06-07 11:23] LABS: Ammonia 16 umol/L (11-51)
[2025-06-07 11:25] LABS: Alanine Aminotransferase 18 U/L (0-33); Albumin Level 4.7 g/dL (3.5-5.2); Alkaline Phosphatase 62 U/L (35-105); Anion Gap 21.8 (5-19); Aspartate Amino Transferase 18 U/L (0-32); Blood Urea Nitrogen 46 mg/dL (8-23); Calcium 9.4 mg/dL (8.5-10.5); Carbon Dioxide 21 mmol/L (22-29); Chloride 94 mmol/L (98-107); Creatinine Clr Calc Pharmacy 72.2111; Globulin 2.9 g/dL (1.3-4.6); Glucose 131 mg/dL (65-115); Lipase 29 U/L (13-60); Osmolality Calculated 292 mOsm/kg (285-295); Sodium 134 mmol/L (136-145); Total Protein 7.6 g/dL (6.6-8.7)
[2025-06-07 11:57] LABS: Potassium 2.8 mmol/L (3.5-5.1)
[2025-06-07 12:02] LABS: Respiratory Syncytial Virus Ce NEGATIVE (Negative); SARS-CoV-2 PCR NEGATIVE (Negative)
[2025-06-07] MEDS: iohexol 350 mg/mL 500 mL Btl (per mL) IV (12:12)
[2025-06-07 12:33] LABS: Magnesium 2.6 mg/dL (1.7-2.3)
--- NOTE | 2025-06-07 13:05 | PC.PHAR ---
Pt states she took her morning medications but spouse did not witness so is unsure.
[2025-06-07 13:49] LABS: Glucose Urine UA Negative (Normal); Nitrate Urine Negative (Negative)
[2025-06-07 13:52] LABS: Add Urine Microscopic? YES; Universal Test for UA Present (0)
[2025-06-07 14:10] LABS: Specific Gravity, Urine 1.077 (1.005-1.030); UA Slide Review UA Slide Review Perf
[2025-06-07 14:33] VITALS: BP 122/94; PULSE 75; O2SAT 98
--- NOTE | 2025-06-07 15:34 | PM.HP ---
Providers/Chief Complaint Admitting Physician: Dr. Squires Primary Care Provider: Remi Kitchen MD Chief Complaint: n/v/d, intermittent fever, AMS History of Present Illness Stephanie Lopez is a 64 year old female with pmhx of HTN, HLD, MDD, anxiety, chronic pain, psoriatic arthritis, Tobacco use disorder, and neuropathy presents today with c/o N/V/D since 06/04/25, Patient to be admitted to hospitalist services with ortho-spine consultation service for further medical management and care. Patient reports back pain she describes as achy and reports a 6/10 on pain scale. Patient presents with c/o N/V/D since 06/05/25 with associated signs/symptoms of AMS, palpitations, chills/cold, stomach cramps, severe back pain, and dizziness with standing. Patient denies headache, fever, neck pain, chest pain, SOB, cough, and recent medication changes. She has hx significant of Hx L2-L5 fusion and THV w/ spinal surgery- was told further fusion will not be beneficial. When in ED a CBC, CMP was collected, reviewed, and results as follows: WBC 11.28, Neut 6.50, [place] 1.3, Hgb 15.80, Hct 47.4. Na 134, K 2.8, Mag 2.6, Anion Gap 21.9, BUN 46, Radio/Tv Technician 0.9, GFR 63.2, LFTs WNL, Lipase normal. A UA was obtained and noted to be negative. Flu/RSV/COVID negative While in ED the following medications were administered: 1 L bolus NS, potassium chloride 40 mEq PO. Medications/Allergies Home Medications ?Medication ?Instructions ?Recorded ?Confirmed ?Last Taken ?Type calcium carbonate (Calcium 500) 500 mg PO DAILY 10/22/21 06/07/25 06/07/25 History multivitamin 1 tab PO DAILY 10/22/21 06/07/25 06/07/25 History sumatriptan succinate 50 mg tablet See Rx Instructions PO .COMPLEX 10/22/21 06/07/25 1 Year Ago History (Imitrex) ~04/20/21 sole supports #1 ea 02/24/24 06/07/25 Unknown Rx oxybutynin chloride 15 mg 15 mg PO DAILY incontinence #90 11/17/24 06/07/25 06/07/25 Rx tablet,extended release 24 hr tabs atorvastatin 40 mg tablet (Lipitor) 40 mg PO DAILY #90 tabs 12/01/24 06/07/25 06/07/25 Rx albuterol sulfate 90 mcg/actuation 1 inh inhalation QID PRN shortness 02/20/25 06/07/25 Unknown Rx aerosol inhaler of breath or wheezing #6.7 grams meloxicam 15 mg tablet 15 mg PO DAILY #90 tabs 02/22/25 06/07/25 06/07/25 Rx clobetasol 0.05 % topical ointment 1 applic topical BID 2 weeks #45 05/22/25 06/07/25 Unknown Rx grams nystatin 100,000 unit/gram topical 1 applic topical BID PRN apply to 05/22/25 06/07/25 Unknown Rx powder irritated area under abdomen #30 grams alprazolam 0.5 mg tablet 0.5 mg PO BID PRN Anxiety #60 tabs 05/28/25 06/07/25 Unknown Rx secukinumab 150 mg/mL subcutaneous 300 mg (2 mL) SUBCUT .L5ishid #2 mL 06/04/25 06/07/25 Unknown Rx pen injector (Cosentyx Pen 300 mg/2 pens () secukinumab 150 mg/mL subcutaneous See Rx Instructions SUBCUT 06/04/25 06/07/25 05/31/25 Rx pen injector (Cosentyx Pen) .COMPLEX #5 mL amlodipine 10 mg tablet 10 mg PO DAILY 06/07/25 06/07/25 06/07/25 History leflunomide 20 mg tablet 20 mg PO DAILY 06/07/25 06/07/25 06/07/25 History losartan 100 1 tab PO DAILY 06/07/25 06/07/25 06/07/25 History mg-hydrochlorothiazide 12.5 mg tablet morphine 15 mg tablet,extended 15 mg PO Q8H 06/07/25 06/07/25 06/07/25 History release propranolol 60 mg capsule,24 60 mg PO DAILY 06/07/25 06/07/25 06/07/25 History hr,extended release tizanidine 4 mg capsule 4 mg PO DAILY PRN muscle spasticity 06/07/25 06/07/25 06/06/25 History triamcinolone acetonide 0.1 % 1 applic topical DAILY PRN Skin 06/07/25 06/07/25 Unknown History topical cream Irritation venlafaxine 150 mg 150 mg PO DAILY 06/07/25 06/07/25 06/07/25 History capsule,extended release 24 hr Allergies Allergy/AdvReac Type Severity Reaction Status Date / Time No Known Allergies Allergy Verified 06/07/25 10:42 PFSH Acute PFSH: Medical History (Updated 06/07/25 @ 17:26 by Rocio Cruz NP) Enrolled in chronic care management Cannabis use disorder Tobacco use disorder Moderate major depression Anxiety Immunization counseling High risk medication use Plaque psoriasis Peripheral neuropathy Mixed urge and stress incontinence BMI greater than 30 Encounter for monitoring opioid maintenance therapy Migraine Smoker Hypertension Hyperlipidemia Back pain with history of spinal surgery History of ganglion cyst Surgical History History of tonsillectomy History of ankle surgery BILATERAL X TOTAL 15 H/O shoulder replacement BILATERAL History of carpal tunnel release BILATERAL History of lumbar fusion History of colonoscopy History of cone biopsy of cervix History of breast biopsy Family History Father Diabetes Cancer Hypertension Mother Cancer BREAST Hyperlipidemia Social History (Updated 05/22/25 @ 13:24 by Ana Maria Campuzano LPN) Smoking and tobacco/nicotine status: current every day tobacco/nicotine user cigarettes Packs smoked per day: 1 Quit status (tobacco/nicotine): has tried quititng Alcohol intake: current Alcohol intake frequency: holidays/special occasions only Vitals/I&O/Wt Last Vital Signs Temp 97.7 F 06/07/25 10:34 Pulse 75 06/07/25 14:33 BP 122/94 06/07/25 14:33 Pulse Ox 98 06/07/25 14:33 O2 Del Method Room Air 06/07/25 14:33 Weight last 48 hrs Weight 79.435 kg Physical Exam Narrative: General: A&Ox2, difficulty finding words and slow responses. Resting in bed on RA. Reports 6/10 on pain scale. HEENT: Normo-cephalic, atraumatic, grossly unremarkable exam Cardio: NSR, normal S1-S2 w/o any murmurs, rubs, or gallops and JVD normal Respiratory: Clear anterior bilaterally to auscultation w/o any wheezes, stridor, rhonchi GI: Abd soft, non-tender, non-distended, normo-active bowel sounds present Neuro: Moves all extremities, no sensory deficits, Normal speech Behavior: Appropriate and cooperative Extremities: Adequate palpable pulses. No clubbing, cyanosis or edema. Data 06/07/25 10:54 06/07/25 10:54 Other Labs: 06/07: Head CT: Reviewed and results as follows: No acute intracranial abnormality. 06/07:Abd/Pelvis CT: Reviewed and results as follows: There is a suggestion of mural thickening in the duodenum and stomach, although the stomach is non-distended. The appearance is concerning for gastroenteritis, which should be assessed clinically. Portions of the colon are collapsed and mural thickening could be present. Correlate clinically for the possibility of colitis. Severe degenerative disc changes are present at T12-L1, including subchondral sclerosis, vacuum disc phenomenon and fragmented depression of the inferior T12 endplate. Although the endplate changes appear subacute, the possibility of T12 compression fracture is considered. 17 x 19 x 10 mm dense epidural mass posterior to the L1 vertebral body results in moderate to severe spinal canal narrowing. The structure contains a bubble of gas and likely represents a large disc extrusion, with less likely etiologies including hematoma and epidural abscess. MRI evaluation is recommended. Mild bladder wall thickening and mild degree of urothelial enhancement is noted in the renal pelves which could reflect mild urinary tract infection. 06/07: CXR: Reviewed and results as follows: Stable chest without acute abnormality. 06/07: EKG: NSR, no ST changes noted, QRS 412, QTc 474, HR 79 A&P Assessment and plan 1. Acute metabolic encephalopathy: 2. Gastroenteritis: 3. Colitis: 4. Dehydration: 5. Acute on chronic back pain: 6. Tobacco use disorder: 7. Hyperlipidemia: 8. Hypertension: Plan: Acute Metabolic Encephalopathy 06/07: Head CT: No acute intracranial abnormality. Patient A&Ox2 to person, place. Difficulty finding words. Neurochecks q4hr Fall precautions 06/07: UA negative for UTI CBC WNL, LFTs WNL, Ammonia 16 TSH ordered, pending Blood cultures ordered, pending Thiamine ordered, pending VBG ordered, pending Gastroenteritis Colitis Dehydration Likely due to N/V/D x 4 days NPO w/ sips, chips, and meds Protonix IVP 40 mg dly IVF of NS w/ 20meq K at 100ml/hr CMP, CBC, Mag dly. Hypokalemia K 2.8, Mag 2.6 Supplemented w/ 40meq PO in ED, recheck this evening Supplement electrolytes as indicated Continuous quality assurance monitor body Acute on Chronic Back Pain Chronic back pain w/ neurogenic claudication, c-spine issues Hx L2-L5 fusion Hx of THV w/ spinal surgery- was told further fusion will not be beneficial. Sent to pain management at this time. Last seen by Dr. Pierce in [place] on 08/02/24. Possible L5-S1 fusion 06/07: Abd/Pelvis CT: 17 x 19 x 10 mm dense epidural mass posterior to the L1 vertebral body results in moderate to severe spinal canal narrowing. The structure contains a bubble of gas and likely represents a large disc extrusion, with less likely etiologies including hematoma and epidural abscess. 06/07: Dr. Austin consulted, expertise and recommendations appreciated. 06/07: MRI ordered, pending. 06/07: Blood cultures ordered, pending. Holding off on Abx currently, low suspicion of abscess. Continue home mediations: morphine 15mg q8hrs PRN, meloxicam 15mg qd, Gabapentin 100mg TID, tizanidine Patient f/u outpatient with Pain Management w/ Dr. Huerta Urge Stress Incontinence Hx of chronic back pain with fusino Continue home medication oxybutynin 15mg qd HTN HLD Continue home medications: norvasc 10mg , losartan-HCTZ 100-12.5mg qd, lipitor 40mg Lipid panel ordered for am, pending. V/S q4hr Continuous cardiac monitoring Psoriatic arthritis [place] psoriasis Continue home medications: Humiria, leflunomide 20mg qd Follows Dr. Lara. last seen 05/22/24 MDD Anxiety Continue home medications: Effexor 150mg PO, Propranolol 60mg ER PO, Xanax 0.5mg qd PRN Tobacco use disorder Current 3/4PPD. Nicotine patch 21gm ordered CODE STATUS: Full Code GI prophylaxis: Protonix IVP 40 mg VTE prophylaxis: SCDs, Lovenox 40 mg subq PDMP PDMP Reviewed: Not Reviewed Attestations Medical Necessity Statement*: Admitted under inpatient status. Given complexity of patient's presentation, co-morbid conditions, and required intensity of treatment, a hospitalization exceeding two midnights is anticipated. and High Time for a total of 76 minutes, includes reviewing past or interval history, examining/interviewing patient, placing orders, counseling patient/family/other support, updating patient/family/other support, discussing plan of care with staff, communicating with other healthcare providers, documenting encounter and coordinating care Diagnoses Acute metabolic encephalopathy G93.41 Gastroenteritis K52.9 Colitis K52.9 Dehydration E86.0 Acute on chronic back pain M54.9; G89.29 Tobacco use disorder F17.200 Hyperlipidemia E78.5 Hypertension I10
[2025-06-07 15:58] VITALS: BMI 26.0
[2025-06-07] MEDS: pantoprazole 40 mg SDV IVP (17:18)
[2025-06-07] MEDS: sodium chlor 0.9% + KCl 20 mEq 20 MEQ/1,000 ML BAG 100 MEQ IV (17:18)
[2025-06-07] MEDS: morphine ER (12 HR) 15 mg Tablet PO (18:12)
[2025-06-07 18:31] LABS: Thyroid Stimulating Hormone 0.98 uIU/mL (0.27-4.20)
[2025-06-07 20:00] VITALS: BP 125/74; PULSE 70; RESP 15; TEMP 36.9; O2SAT 97
[2025-06-07 20:04] LABS: Base Excess VBG 2.6 mmol/L (-3.0-3.0); Blood Gas Allen Test Pos; HCO3 VBG 26.6 mmol/L (24-28); PCO2 VBG 38.1 mmHg (41-51); PO2 VBG 29.3 mmHg (25-40); Venous Blood Gas Hematocrit 42.0 % (37-47); pH VBG 7.45 (7.32-7.42)
[2025-06-07 20:05] LABS: Blood Gas Operator Identificat gerca; Blood Gas Sample Type Venous
[2025-06-07 22:00] VITALS: PULSE 62
[2025-06-08] VITALS (7 sets, daily range): BP systolic 118–169; BP diastolic 64–90; PULSE 55–64; RESP 15–18; TEMP 36.7–36.8; O2SAT 92–100
[2025-06-08] MEDS: morphine ER (12 HR) 15 mg Tablet PO ×3 (01:33→17:10)
[2025-06-08] MEDS: sodium chlor 0.9% + KCl 20 mEq 20 MEQ/1,000 ML BAG 100 MEQ IV ×2 (01:34→12:10)
[2025-06-08] MEDS: oxybutynin chloride XL 5 MG TABLET 15 MG PO (04:24)
[2025-06-08] MEDS: venlafaxine ER (24HR) 150 mg Capsule PO (04:24)
[2025-06-08 04:45] LABS: Hematocrit 35.4 % (36-47); Hemoglobin 11.70 g/dL (11.27-16.99); Mean Corpuscular HGB Conc 33.1 g/dL (30-55); Mean Corpuscular Hemoglobin 31.2 pg (27-33); Mean Corpuscular Volume 94.4 fl (85-98); Nucleated Red Blood Cells % 0 %; Platelet Count 302 10^3/cmm (157-399); Red Blood Count 3.75 10^6/uL (3.85-5.65); White Blood Count 10.81 10^3/uL (3.29-11.43)
[2025-06-08 05:07] LABS: Alanine Aminotransferase 15 U/L (0-33); Albumin Level 3.7 g/dL (3.5-5.2); Alkaline Phosphatase 44 U/L (35-105); Anion Gap 12.4 (5-19); Aspartate Amino Transferase 18 U/L (0-32); Blood Urea Nitrogen 28 mg/dL (8-23); Calcium 8.2 mg/dL (8.5-10.5); Carbon Dioxide 22 mmol/L (22-29); Chloride 101 mmol/L (98-107); Globulin 1.8 g/dL (1.3-4.6); Glucose 103 mg/dL (65-115); Magnesium 2.3 mg/dL (1.7-2.3); Osmolality Calculated 280 mOsm/kg (285-295); Potassium 3.4 mmol/L (3.5-5.1); Sodium 132 mmol/L (136-145); Total Protein 5.5 g/dL (6.6-8.7)
[2025-06-08 05:12] LABS: Cholesterol 127 mg/dL (0-200); HDL Cholesterol 28 mg/dL (60-100); Triglycerides 205 mg/dL (0-150)
[2025-06-08 05:36] LABS: Slide Review Slide Review Perform
--- NOTE | 2025-06-08 09:46 | PM.CONSULT ---
Providers/Reason For Consult Consulting Physician/Specialty*: Hospitalist Reason for Consult*: Finding on CT scan that shows mass at T12-L1 in the epidural space. Attending Physician: Leonardo Smith Primary Care Provider: Remi Kitchen MD History of Present Illness History of Present Illness Stephanie Lopez is a 64 year old female with GI complaints and confusion. CT of the abdomen was done which showed a T12-L1 mass. I was consulted to evaluate this mass. Review of Systems Const: Denies: fever(s), chills or night sweats Eyes: Denies: change in vision, blurry vision, eye discomfort or eye redness ENMT: Denies: throat pain, odynophagia, mouth pain, nasal discharge or sinus pain Card: Denies: chest pain, palpitations or syncope Resp: Denies: dyspnea, productive cough, wheezing or hemoptysis GI: Denies: abdominal pain : Denies: difficulty voiding, dysuria, urinary frequency, urinary urgency or hematuria Musc: Reports: other (as per HPI) Skin/Breast: Denies: rash Neuro: Denies: weakness in extremities or seizure-like activity Psych: Denies: anxiety Endo: Denies: heat intolerance Dewey/Lymph: Denies: easy bleeding, petechiae or enlarged lymph nodes Medications/Allergies Home Medications ?Medication ?Instructions ?Recorded ?Confirmed ?Last Taken ?Type calcium carbonate (Calcium 500) 500 mg PO DAILY 10/22/21 06/07/25 06/07/25 History multivitamin 1 tab PO DAILY 10/22/21 06/07/25 06/07/25 History sumatriptan succinate 50 mg tablet See Rx Instructions PO .COMPLEX 10/22/21 06/07/25 1 Year Ago History (Imitrex) ~04/20/21 sole supports #1 ea 02/24/24 06/07/25 Unknown Rx oxybutynin chloride 15 mg 15 mg PO DAILY incontinence #90 11/17/24 06/07/25 06/07/25 Rx tablet,extended release 24 hr tabs atorvastatin 40 mg tablet (Lipitor) 40 mg PO DAILY #90 tabs 12/01/24 06/07/25 06/07/25 Rx albuterol sulfate 90 mcg/actuation 1 inh inhalation QID PRN shortness 02/20/25 06/07/25 Unknown Rx aerosol inhaler of breath or wheezing #6.7 grams meloxicam 15 mg tablet 15 mg PO DAILY #90 tabs 02/22/25 06/07/25 06/07/25 Rx clobetasol 0.05 % topical ointment 1 applic topical BID 2 weeks #45 05/22/25 06/07/25 Unknown Rx grams nystatin 100,000 unit/gram topical 1 applic topical BID PRN apply to 05/22/25 06/07/25 Unknown Rx powder irritated area under abdomen #30 grams alprazolam 0.5 mg tablet 0.5 mg PO BID PRN Anxiety #60 tabs 05/28/25 06/07/25 Unknown Rx secukinumab 150 mg/mL subcutaneous 300 mg (2 mL) SUBCUT .F0przlv #2 mL 06/04/25 06/07/25 Unknown Rx pen injector (Cosentyx Pen 300 mg/2 pens () secukinumab 150 mg/mL subcutaneous See Rx Instructions SUBCUT 06/04/25 06/07/25 05/31/25 Rx pen injector (Cosentyx Pen) .COMPLEX #5 mL amlodipine 10 mg tablet 10 mg PO DAILY 06/07/25 06/07/25 06/07/25 History leflunomide 20 mg tablet 20 mg PO DAILY 06/07/25 06/07/25 06/07/25 History losartan 100 1 tab PO DAILY 06/07/25 06/07/25 06/07/25 History mg-hydrochlorothiazide 12.5 mg tablet morphine 15 mg tablet,extended 15 mg PO Q8H 06/07/25 06/07/25 06/07/25 History release propranolol 60 mg capsule,24 60 mg PO DAILY 06/07/25 06/07/25 06/07/25 History hr,extended release tizanidine 4 mg capsule 4 mg PO DAILY PRN muscle spasticity 06/07/25 06/07/25 06/06/25 History triamcinolone acetonide 0.1 % 1 applic topical DAILY PRN Skin 06/07/25 06/07/25 Unknown History topical cream Irritation venlafaxine 150 mg 150 mg PO DAILY 06/07/25 06/07/25 06/07/25 History capsule,extended release 24 hr Allergies Allergy/AdvReac Type Severity Reaction Status Date / Time No Known Allergies Allergy Verified 12/11/25 10:42 Current Medications Generic Name Dose Route Start Last Admin Trade Name Freq PRN Reason Stop Dose Admin Acetaminophen 650 mg 06/07/25 16:19 06/07/25 17:18 Acetaminophen 325 Mg Tablet PO 650 mg Q6H PRN Administration Mild/Mod Pain Or Temp >/= 101 Amlodipine Besylate 10 mg 06/08/25 05:00 06/08/25 04:23 Amlodipine 10 Mg Tablet PO 10 mg DAILY FELIX Administration Atorvastatin Calcium 40 mg 06/08/25 05:00 06/08/25 04:24 Atorvastatin 40 Mg Tablet PO 40 mg DAILY FELIX Administration Enoxaparin Sodium 40 mg 06/07/25 16:30 06/07/25 17:18 Enoxaparin 40 Mg/0.4 Ml Syringe SUBCUT 40 mg Q24H FELIX Administration Potassium Chloride/Sodium Chloride 20 meq in 1,000 mls @ 100 mls/hr 06/07/25 16:30 06/08/25 01:34 Sodium Chlor 0.9% + Kcl 20 Meq IV 100 mls/hr .Q10H FELIX Administration Morphine Sulfate 15 mg 06/07/25 17:45 06/08/25 09:44 Morphine Er (12 Hr) 15 Mg Tablet PO 15 mg Q8H FELIX Administration Oxybutynin Chloride 15 mg 06/08/25 05:00 06/08/25 04:24 Oxybutynin Chloride Xl 5 Mg Tablet PO 15 mg DAILY FELIX Administration Pantoprazole Sodium 40 mg 06/07/25 16:30 06/07/25 17:18 Pantoprazole 40 Mg Sdv IVP 40 mg Q24H FELIX Administration Propranolol HCl 20 mg 06/07/25 21:00 06/08/25 04:24 Propranolol 20 Mg Tablet PO 20 mg TID FELIX Administration Venlafaxine HCl 150 mg 06/08/25 05:00 06/08/25 04:24 Venlafaxine Er (24hr) 150 Mg Capsule PO 150 mg DAILY FELIX Administration PFSH Acute PFSH: Medical History (Updated 06/07/25 @ 17:26 by Rocio Cruz NP) Enrolled in chronic care management Cannabis use disorder Tobacco use disorder Moderate major depression Anxiety Immunization counseling High risk medication use Plaque psoriasis Peripheral neuropathy Mixed urge and stress incontinence BMI greater than 30 Encounter for monitoring opioid maintenance therapy Migraine Smoker Hypertension Hyperlipidemia Back pain with history of spinal surgery History of ganglion cyst Surgical History History of tonsillectomy History of ankle surgery BILATERAL X TOTAL 15 H/O shoulder replacement BILATERAL History of carpal tunnel release BILATERAL History of lumbar fusion History of colonoscopy History of cone biopsy of cervix History of breast biopsy Family History Father Diabetes Cancer Hypertension Mother Cancer BREAST Hyperlipidemia Social History (Updated 05/22/25 @ 13:24 by Ana Maria Campuzano LPN) Smoking and tobacco/nicotine status: current every day tobacco/nicotine user cigarettes Packs smoked per day: 1 Quit status (tobacco/nicotine): has tried quititng Alcohol intake: current Alcohol intake frequency: holidays/special occasions only Vitals/I&O/Wt Last Vital Signs Temp 98.3 F 06/08/25 07:27 Pulse 55 L 06/08/25 07:27 Resp 15 06/08/25 07:27 BP 145/78 06/08/25 07:27 Pulse Ox 94 06/08/25 07:27 O2 Del Method Room Air 06/08/25 07:27 06/07/25 06/08/25 06/08/25 22:59 06:59 14:59 Intake Total 1000 / 1000 826.667 / 1826.667 Balance 1000 / 1000 826.667 / 1826.667 Weight last 48 hrs Weight 176 lb Weight 176 lb 9.6 oz Weight 175 lb 2 oz Physical Exam Narrative: Alert and oriented x 3 Head is normocephalic atraumatic Respirations are intact No evidence of any rashes or infection 5/5 strength in bilateral upper and lower extremities Sensation intact in all extremities Patient has fusion of the left ankle also cannot test dorsiflexion plantarflexion of the left ankle however L5 and S1 appear to be intact bilaterally. Sensation intact bilaterally. Data 06/08/25 03:58 06/08/25 03:58 Micro: Microbiology 06/07/25 17:30 Blood Culture - Preliminary Blood SPECIMEN COLLECTED 06/07/25 16:34 Blood Culture - Preliminary Blood SPECIMEN COLLECTED A&P Assessment and plan 1. Chronic back pain: Patient with history of L2-L5 posterior fusion. Mass at T12-L1 likely a disc herniation. Patient does not have new symptoms related to this at this point. Does not really look like an epidural abscess. At this point more than likely patient will not need any type of surgery urgently. Will await MRI. PDMP PDMP Reviewed: Not Reviewed Coding Level of Care Code Acute Code for g Fwd Diagnoses Chronic back pain M54.9; G89.29
[2025-06-08] MEDS: gadobenate dimeglumine 20 mL vial 17 ML IV (12:56)
--- NOTE | 2025-06-08 13:04 | PC.SOCIAL ---
IMM Updated Updated pt on IMM. No questions. Provided pt a copy. Initialed, dated, & timed a copy & placed in chart.
--- NOTE | 2025-06-08 16:21 | P.PN_ITS ---
Subjective 2 Subjective: She is feeling a bit better today. She is deafly more alert. Has poor recollection of yesterday's events. Vitals/I&O/Wt Last Vital Signs Temp 98.1 F 06/08/25 11:06 Pulse 62 06/08/25 11:06 Resp 16 06/08/25 11:06 BP 139/66 06/08/25 11:06 Pulse Ox 96 06/08/25 11:06 O2 Del Method Room Air 06/08/25 11:06 06/08/25 06/08/25 06/08/25 06:59 14:59 22:59 Intake Total 826.667 / 7163.873 0339.667 / 1001.667 Balance 826.667 / 5144.680 9392.667 / 1001.667 Weight last 48 hrs Weight 79.832 kg Weight 80.104 kg Weight 79.435 kg Physical Exam 2 Narrative: She is awake and alert, slightly slowed responses. No dysarthria. Appears to be more forgetful and not recalling events from yesterday very well rather than having aphasia. Const: COMMON NORMALS: patient oriented x3 and alert GENERAL APPEARANCE: c ooperative ORIENTATION/CONSCIOUSNESS: Yes awake HENMT: COMMON NORMALS: oropharynx normal Neck/C-Spine: COMMON NORMALS: no JVD Resp: COMMON NORMALS: normal respiratory effort and clear to auscultation bilaterally AUSCULTATION: clear to auscultation bilaterally Cardio: COMMON NORMALS: no JVD, regular rhythm, S1 normal heart sound present, S2 normal heart sound present and No murmurs present (Cardio) RHYTHM: regular rhythm HEART SOUNDS: S1 normal heart sound present and S2 normal heart sound present GI: COMMON NORMALS: Normal to inspection, nondistended, normoactive bowel sounds present, Soft to palpation and non-tender PALPATION: Yes Soft to palpation Extremity: COMMON NORMALS: no joint enlargement and no pedal edema OTHER: Following directions. No facial droop. No difficulty tracking. Moving all extremities. Neuro: COMMON NORMALS: patient oriented x3 and moves all extremities S ENSORIUM/ORIENTATION: Yes alert Skin: COMMON NORMALS: no rashes or lesions noted GENERAL SKIN EXAM: no rashes or lesions noted Data 06/08/25 03:58 06/08/25 03:58 Micro: Microbiology 06/07/25 17:30 Blood Culture - Preliminary Blood SPECIMEN COLLECTED 06/07/25 16:34 Blood Culture - Preliminary Blood SPECIMEN COLLECTED A&P Assessment and plan 1. Acute metabolic encephalopathy: 2. Gastroenteritis: 3. Colitis: 4. Dehydration: 5. Acute on chronic back pain: 6. Tobacco use disorder: 7. Mixed hyperlipidemia: 8. Primary hypertension: Plan: Acute Metabolic Encephalopathy With improvement today, does have somewhat slowed responses, otherwise without slurred speech, and appears to have some recollection difficulties, limited recollection of events from yesterday, does not appear to have true aphasia. He is oriented. Patient responding appropriately. Reports she does smoke marijuana, but no other substance use, drinks very little. I reviewed vitals, CBC, ABG, CMP. Obtain UDS, EtOH. She is afebrile, with a leukocytosis. Currently without signs of sepsis. Without any new or worsening back pain or other symptoms. Has had chronic back problems. MRIs been requested for today. Gastroenteritis Colitis Dehydration Nausea and vomiting so far have resolved. She does have persistence of diarrhea. Stool studies for Salmonella, Shigella, couple factor. Restarting oral intake. Continue IV hydration for now until consistent. Monitor for risk of fluid overload. Discussed cannabinoid hyperemesis syndrome, she acknowledges awareness. Discussed possible gastritis secondary to NSAID, avoid meloxicam. Continue PPI for now. Hypokalemia Potassium reviewed, with improvement to 3.4. Magnesium reviewed, normal 2.3. Will give additional potassium. Reassess level. Acute on Chronic Back Pain With noted epidural mass on CT abdomen pelvis. Pending MRI today, obtained, reviewed results, discussed with orthopedic surgeon. Noted partially calcified disc extrusion at T12-L1 with inferior extension of disc material posterior to L1 with peripheral enhancement. Results in moderate to severe central canal stenosis with flattening of thecal sac corresponding to CT findings. Compression of the inferior endplate anteriorly with fragmentation T12 with sclerosis and vacuum disc phenomenon. There is probably chronic with degenerative endplate edema at T12 and L1. Moderate central canal stenosis at L1-2 disc level. Laminectomy defects L2-4 with spinal canal decompression. Moderate bilateral L5-S1 foraminal narrowing worse on the right. Blood culture reviewed, negative. Follow-up. Obtain PT assessment. No plans for surgical duration at this time. Fall precautions. Continue pain control, acetaminophen as needed, tizanidine, morphine. Urge Stress Incontinence Hx of chronic back pain with fusino Continue home medication oxybutynin 15mg qd HTN HLD Continue home medications: norvasc 10mg , losartan-HCTZ 100-12.5mg qd, lipitor 40mg V/S q4hr. Monitor blood pressures. Continuous cardiac monitoring Psoriatic arthritis Plaques psoriasis Continue home medications: Humiria, leflunomide 20mg qd Follows Dr. Lara. last seen 05/22/24 MDD Anxiety Continue home medications: Effexor 150mg PO, Propranolol 60mg ER PO, Xanax 0.5mg qd PRN Tobacco use disorder Current /4PPD. Nicotine patch 21gm ordered encourage cessation. CODE STATUS: Full Code GI prophylaxis: Protonix IVP 40 mg VTE prophylaxis: SCDs, Lovenox 40 mg subq PDMP PDMP Reviewed: Not Reviewed Attestations 2 Medical Necessity Statement*: Continue admission for assessment management of improving metabolic encephalopathy, possible toxic encephalopathy, epidural mass, post discharge planning and arrangements. and High MDM includes amount and/or complexity of data reviewed/ordered [ resulted lab(s)/test(s), ordered lab(s)/test(s) and other healthcare professional discussion] and described risk of complication, morbidity or mortality of management as documented Diagnoses Acute metabolic encephalopathy G93.41 Gastroenteritis K52.9 Colitis K52.9 Dehydration E86.0 Acute on chronic back pain M54.9; G89.29 Tobacco use disorder F17.200 Mixed hyperlipidemia E78.2 Hyperlipidemia type: mixed hyperlipidemia Primary hypertension I10 Hypertension type: primary hypertension
--- NOTE | 2025-06-08 16:48 | MR_ITS ---
WS: [id number] MRI LUMBAR SPINE WITH CONTRAST TECHNIQUE: Sagittal T1, T2 and STIR imaging. Axial T1 and T2 imaging. Post gadolinium imaging was obtained. CLINICAL INFORMATION: Mass in epidural space of lumbar spine COMPARISON: CT 06/07/2025 FINDINGS: Mild lumbar curve. Grade 1 anterolisthesis L4 on L5. Pedicle screw fixation to L2-L5. Laminectomy defects L2-L3 L3-L4 and L4-5. Spinal canal is patent. Simple fluid collection in the laminectomy defects compatible with small seroma. Partially calcified disc extrusion at T12-L1 extending posteriorly to the L1 vertebral body. This results in moderate to severe central canal stenosis with impingement on the thecal sac. This corresponds to the CT findings. Associated peripheral enhancement of the disc material. Compression fracture inferior endplate T12 with sclerosis and vacuum disc phenomenon on the CT. This is probably chronic. Endplate edema at T12 and L1 is probably degenerative L1-L2: Mild disc bulging with slight effacement of the ventral thecal sac. Narrowing of the subarticular recess RIGHT greater than LEFT. Moderate facet arthropathy. Moderate RIGHT foraminal narrowing. L2-L3: Mild disc bulge with endplate ridging. Spinal canal and foramen are patent. L3-L4: Laminectomy defects. Spinal canal and foramen are patent. L4-L5: Slight anterolisthesis L4 on L5. Mild disc bulging. Mild LEFT and no significant RIGHT foraminal narrowing. Spinal canal has been decompressed. L5-S1: Disc osteophyte ridging. Moderate RIGHT greater than LEFT bony foraminal narrowing. Moderate facet arthropathy. Visualized pelvic bony structures: Normal. Paravertebral soft tissues: Normal. Small LEFT renal cyst. MR/MR lumbar spine wo/w con [id number] IMPRESSION: 1. Partially calcified disc extrusion at T12-L1 with inferior extension of dis c material posterior to L1 with peripheral enhancement. This results in moderat e to severe central canal stenosis with flattening of the thecal sac. This janneth esponds to the CT findings. 2. Compression of the inferior endplate anteriorly with fragmentation T12 with sclerosis and vacuum disc phenomenon. This is probably chronic with degenerati ve endplate edema at T12 and L1. 3. Moderate central canal stenosis L1-2 disc level. 4. Laminectomy defects L2-L4 with spinal canal decompression. 5. Moderate bilateral L5-S1 foraminal narrowing. This is worse on the RIGHT.
[2025-06-08] MEDS: pantoprazole 40 mg SDV IVP (17:10)
[2025-06-08 18:38] LABS: Alcohol Level < 10 mg/dL (0-10)
[2025-06-08 19:56] LABS: PCP Screen Urine Negative (Negative)
[2025-06-09] VITALS: BP 150/81; PULSE 86; RESP 16; TEMP 36.6; O2SAT 96
[2025-06-09] MEDS: morphine ER (12 HR) 15 mg Tablet PO ×2 (01:49→09:10)
[2025-06-09 03:56] LABS: Hematocrit 36.7 % (36-47); Hemoglobin 12.30 g/dL (11.27-16.99); Mean Corpuscular HGB Conc 33.5 g/dL (30-55); Mean Corpuscular Hemoglobin 31.7 pg (27-33); Mean Corpuscular Volume 94.6 fl (85-98); Nucleated Red Blood Cells % 0 %; Platelet Count 304 10^3/cmm (157-399); Red Blood Count 3.88 10^6/uL (3.85-5.65); White Blood Count 8.33 10^3/uL (3.29-11.43)
[2025-06-09 04:00] VITALS: BP 124/74; PULSE 61; RESP 16; TEMP 36.8; O2SAT 97
[2025-06-09] MEDS: oxybutynin chloride XL 5 MG TABLET 15 MG PO (04:08)
[2025-06-09] MEDS: sodium chlor 0.9% + KCl 20 mEq 20 MEQ/1,000 ML BAG 100 MEQ IV (04:09)
[2025-06-09 04:12] LABS: Alanine Aminotransferase 15 U/L (0-33); Albumin Level 3.7 g/dL (3.5-5.2); Alkaline Phosphatase 47 U/L (35-105); Aspartate Amino Transferase 15 U/L (0-32); Blood Urea Nitrogen 14 mg/dL (8-23); Calcium 8.1 mg/dL (8.5-10.5); Carbon Dioxide 21 mmol/L (22-29); Chloride 107 mmol/L (98-107); Globulin 2.0 g/dL (1.3-4.6); Glucose 86 mg/dL (65-115); Magnesium 2.2 mg/dL (1.7-2.3); Osmolality Calculated 288 mOsm/kg (285-295); Sodium 139 mmol/L (136-145); Total Protein 5.7 g/dL (6.6-8.7)
[2025-06-09] MEDS: venlafaxine ER (24HR) 150 mg Capsule PO (04:13)
[2025-06-09 04:15] LABS: Anion Gap 14.6 (5-19); Potassium 3.6 mmol/L (3.5-5.1)
[2025-06-09 06:00] VITALS: PULSE 51
[2025-06-09 08:13] VITALS: BP 175/80; PULSE 72; RESP 16; TEMP 36.4; O2SAT 97
--- NOTE | 2025-06-09 08:58 | PM.DCS ---
Discharge Providers Date of Admission: 06/07/25 15:46 Date of Discharge: June 09, 2025 Attending Provider at Admission: Melo Squires MD Attending Provider at Discharge: Leonardo Smith Primary Care Provider: Remi Kitchen MD Diagnoses at Discharge Discharge Diagnosis 1. Acute metabolic encephalopathy: 2. Gastroenteritis: 3. Colitis: 4. Dehydration: 5. Acute on chronic back pain: 6. Tobacco use disorder: 7. Mixed hyperlipidemia: 8. Primary hypertension: Reason for Visit Reason for Visit: n/v/d, intermittent fever, AMS Brief History: Stephanie Lopez is a 64 year old female with pmhx of HTN, HLD, MDD, anxiety, chronic pain, psoriatic arthritis, Tobacco use disorder, and neuropathy presents today with c/o N/V/D since 06/04/25, Patient to be admitted to hospitalist services with ortho-spine consultation service for further medical management and care. Patient reports back pain she describes as achy and reports a 6/10 on pain scale. Patient presents with c/o N/V/D since 06/05/25 with associated signs/symptoms of AMS, palpitations, chills/cold, stomach cramps, severe back pain, and dizziness with standing. Patient denies headache, fever, neck pain, chest pain, SOB, cough, and recent medication changes. She has hx significant of Hx L2-L5 fusion and THV w/ spinal surgery- was told further fusion will not be beneficial. When in ED a CBC, CMP was collected, reviewed, and results as follows: WBC 11.28, Neut 6.50, [place] 1.3, Hgb 15.80, Hct 47.4. Na 134, K 2.8, Mag 2.6, Anion Gap 21.9, BUN 46, Senior Engineering Technician 0.9, GFR 63.2, LFTs WNL, Lipase normal. A UA was obtained and noted to be negative. Flu/RSV/COVID negative While in ED the following medications were administered: 1 L bolus NS, potassium chloride 40 mEq PO. Hospital Course Hospital Course She received IV hydration, Protonix, antiemetic, initially on bowel rest. Nausea vomiting gradually resolving. NSAID was held, and she is asked to discontinue and avoid NSAIDs, avoid any alcohol, and she is made aware of possibility of contribution of cannabinoid hyperemesis syndrome. However, with thickened portions of stomach and duodenum, colon, appears possible acute inflammatory process, possible viral illness. Stool studies were requested for diarrhea, however, so far diarrhea has resolved as well. Please follow-up, and if she continues to improve/symptoms resolve, please refer for additional assessment by upper and lower endoscopy. Incidentally noted epidural mass on 17 x 19 x 10 mm posterior to L1 vertebral body resulting in moderate to severe spinal canal stenosis, additionally assessed by MRI, remained without signs of sepsis or acute infection, she was seen by orthopedic surgery, MRI showing partially calcified disc extrusion T12-L1 with anterior extension of disc material posterior to L1 with peripheral enhancement. This results in moderate to severe central canal stenosis with flattening of the thecal sac. Additionally findings of compression of inferior endplate anteriorly with fragmentation T12 with sclerosis and vacuum disc phenomenon. This is probably chronic with degenerative endplate edema at T12 and L1. Moderate central canal stenosis L1-2 disc level. Laminectomy defect L2-4 with spinal cord compression. Moderate bilateral L5-S1 foraminal narrowing, worse on the right. Orthopedic surgery will follow-up with her in office. She has been getting up and ambulating in her room. With nausea vomiting and altered mental status symptoms resolved, she is tolerating oral intake. Feels much better and ready to return home. Physical Exam Const: COMMON NORMALS: patient oriented x3 and alert GENERAL APPEARANCE: cooperative ORIENTATION/CONSCIOUSNESS: Yes awake HENMT: COMMON NORMALS: oropharynx normal Neck/C-Spine: COMMON NORMALS: no JVD Resp: COMMON NORMALS: normal respiratory effort and clear to auscultation bilaterally AUSCULTATION: clear to auscultation bilaterally Cardio: COMMON NORMALS: no JVD, regular rhythm, S1 normal heart sound present, S2 normal heart sound present and No murmurs present (Cardio) RHYTHM: regular rhythm HEART SOUNDS: S1 normal heart sound present and S2 normal heart sound present GI: COMMON NORMALS: Normal to inspection, nondistended, normoactive bowel sounds present, Soft to palpation and non-tender PALPATION: Yes Soft to palpation Extremity: COMMON NORMALS: no joint enlargement and no pedal edema Neuro: COMMON NORMALS: patient oriented x3 and moves all extremities SENSORIUM/ORIENTATION: Yes alert Skin: COMMON NORMALS: no rashes or lesions noted GENERAL SKIN EXAM: no rashes or lesions noted Discharge Data Studies Completed and Pending Completed Studies During Hospitalization Category Date Time Status CT abdomen pelvis w con* [id number] Stat Cat Scan 06/07/25 11:[address] head wo con* [id number] Stat Cat Scan 06/07/25 11:00 Completed CXRP [XR chest 1V portable [id number]] Stat Exams 06/07/25 10:51 Completed MR lumbar spine wo/w con [id number] Routine MRI 06/08/25 16:48 Completed Pending at discharge Category Date Time Status Blood Culture Stat Lab 06/07/25 17:30 Results C.Diff PCR (Lab) Routine Lab 06/08/25 22:00 Ordered Complete Blood Count w/Auto AM LABS Lab 06/10/25 04:00 Ordered Comprehensive Metabolic Panel AM LABS Lab 06/10/25 04:00 Ordered Magnesium AM LABS Lab 06/10/25 04:00 Ordered Stool Culture - Enteric [Salmonella / Shigella / Campy] Lab 06/08/25 19:06 Ordered Routine VBG [Venous Blood Gas] Routine Lab 06/07/25 19:44 Results Vitamin B1 (Thiamine),Blood Routine Lab 06/07/25 17:51 Received Radiology Impressions Chest X-Ray 06/07/25 10:51 IMPRESSION: Stable chest without acute abnormality. Abdomen/Pelvis CT 06/07/25 11:00 IMPRESSION: 1. There is a suggestion of mural thickening in the duodenum and stomach, although the stomach is nondistended. The appearance is concerning for gastroenteritis, which should be assessed clinically. 2. Portions of the colon are collapsed and mural thickening could be present. Correlate clinically for the possibility of colitis. 3. Severe degenerative disc changes are present at T12-L1, including subchondral sclerosis, vacuum disc phenomenon and fragmented depression of the inferior T12 endplate. Although the endplate changes appear subacute, the possibility of T12 compression fracture is considered. 4. 17 x 19 x 10 mm dense epidural mass posterior to the L1 vertebral body results in moderate to severe spinal canal narrowing. The structure contains a bubble of gas and likely represents a large disc extrusion, with less likely etiologies including hematoma and epidural abscess. MRI evaluation is recommended. 5. Mild bladder wall thickening and mild degree of urothelial enhancement is noted in the renal pelves which could reflect mild urinary tract infection. COMMENTS: Consistent with the [place] [employer]'s Incidental Findings Committee white paper (J Am Matilda Radiol 2018): Any incidental renal lesion less than 1 cm or classified as too small to characterize, or any incidental cystic renal lesion characterized as simple-appearing, is likely benign. No follow-up imaging is recommended for these lesions per consensus recommendations based on imaging criteria. ADDENDUM: 06/07/25 1342 Findings were discussed with BETTY VAN at 06/07/2025 1:40 PM FORECLOSURE SPECIALIST. Head CT 06/07/25 11:00 IMPRESSION: No acute intracranial abnormality. Lumbar Spine MRI 06/08/25 16:48 IMPRESSION: 1. Partially calcified disc extrusion at T12-L1 with inferior extension of disc material posterior to L1 with peripheral enhancement. This results in moderate to severe central canal stenosis with flattening of the thecal sac. This corresponds to the CT findings. 2. Compression of the inferior endplate anteriorly with fragmentation T12 with sclerosis and vacuum disc phenomenon. This is probably chronic with degenerative endplate edema at T12 and L1. 3. Moderate central canal stenosis L1-2 disc level. 4. Laminectomy defects L2-L4 with spinal canal decompression. 5. Moderate bilateral L5-S1 foraminal narrowing. This is worse on the RIGHT. Laboratory Results WBC 8.33 10^3/uL (3.29-11.43) 06/09/25 03:08 RBC 3.88 10^6/uL (3.85-5.65) 06/09/25 03:08 Hgb 12.30 g/dL (11.27-16.99) 06/09/25 03:08 Hct 36.7 % (36-47) 06/09/25 03:08 MCV 94.6 fl (85-98) 06/09/25 03:08 MCH 31.7 pg (27-33) 06/09/25 03:08 MCHC 33.5 g/dL (30-55) 06/09/25 03:08 RDW 13.4 % (12.1-15.1) 06/09/25 03:08 Plt Count 304 10^3/cmm (157-399) 06/09/25 03:08 MPV 10.0 fL (7.4-10.4) 06/09/25 03:08 Neut % (Auto) 24.6 % 06/09/25 03:08 Lymph % (Auto) 63.1 % 06/09/25 03:08 [place] % (Auto) 9.6 % 06/09/25 03:08 Eos % (Auto) 2.2 % 06/09/25 03:08 Baso % (Auto) 0.4 % 06/09/25 03:08 Neut # (Auto) 2.05 10^3/uL (1.8-7.7) 06/09/25 03:08 Lymph # (Auto) 5.3 10^3/uL (0.8-4.8) H 06/09/25 03:08 [place] # (Auto) 0.8 10^3/uL (0.2-0.9) 06/09/25 03:08 Eos # (Auto) 0.2 10^3/uL (0.0-0.8) 06/09/25 03:08 Baso # (Auto) 0.0 10^3/uL (0.0-0.1) 06/09/25 03:08 Nucleated RBC % (auto) 0 % 06/09/25 03:08 Nucleated RBCs # 0.0 /100WBC 06/09/25 03:08 Specimen Type Venous 06/07/25 19:44 Oren Test Pos 06/07/25 19:44 VBG pH 7.45 (7.32-7.42) H 06/07/25 19:44 VBG pCO2 38.1 mmHg (41-51) L 06/07/25 19:44 VBG pO2 29.3 mmHg (25-40) 06/07/25 19:44 VBG HCO3 26.6 mmol/L (24-28) 06/07/25 19:44 VBG Base Excess 2.6 mmol/L (-3.0-3.0) 06/07/25 19:44 VBG Hematocrit 42.0 % (37-47) 06/07/25 19:44 O2 Delivery Device Room air 06/07/25 19:44 FiO2 21.0 % 06/07/25 19:44 Service Crew Supervisor ID [email or web address] 06/07/25 19:44 Sodium 139 mmol/L (136-145) 06/09/25 03:08 Potassium 3.6 mmol/L (3.5-5.1) 06/09/25 03:08 Chloride 107 mmol/L (98-107) 06/09/25 03:08 Carbon Dioxide 21 mmol/L (22-29) L 06/09/25 03:08 Anion Gap 14.6 (5-19) 06/09/25 03:08 BUN 14 mg/dL (8-23) 06/09/25 03:08 Creatinine 0.4 mg/dL (0.5-0.9) L 06/09/25 03:08 GFR Calculation 161.2 mL/min (90-130) H 06/09/25 03:08 Glucose 86 mg/dL (65-115) 06/09/25 03:08 Calculated Osmolality 288 mOsm/kg (285-295) 06/09/25 03:08 Calcium 8.1 mg/dL (8.5-10.5) L 06/09/25 03:08 Magnesium 2.2 mg/dL (1.7-2.3) 06/09/25 03:08 Total Bilirubin 0.5 mg/dL (0.15-1.2) 06/09/25 03:08 AST 15 U/L (0-32) 06/09/25 03:08 ALT 15 U/L (0-33) 06/09/25 03:08 Alkaline Phosphatase 47 U/L (35-105) 06/09/25 03:08 Ammonia 16 umol/L (11-51) 06/07/25 10:54 Total Protein 5.7 g/dL (6.6-8.7) L 06/09/25 03:08 Albumin 3.7 g/dL (3.5-5.2) 06/09/25 03:08 Globulin 2.0 g/dL (1.3-4.6) 06/09/25 03:08 Triglycerides 205 mg/dL (0-150) H 06/08/25 03:58 Cholesterol 127 mg/dL (0-200) 06/08/25 03:58 LDL Cholesterol, Calc 58 mg/dL (50-129) 06/08/25 03:58 HDL Cholesterol 28 mg/dL (60-100) L 06/08/25 03:58 LDL/HDL Ratio 2.07 RATIO (0.00-3.22) 06/08/25 03:58 Cholesterol/HDL Ratio 4.54 mg/dL (0.0-4.40) H 06/08/25 03:58 Lipase 29 U/L (13-60) 06/07/25 10:54 TSH 0.98 uIU/mL (0.27-4.20) 06/07/25 10:54 Urine Color Yellow (Yellow) 06/07/25 12:22 Urine Appearance Clear (CLEAR) 06/07/25 12:22 Urine pH 6.5 (5-7) 06/07/25 12:22 Ur Specific [place] 1.077 (1.005-1.030) H 06/07/25 12:22 Urine Protein 1+ (Negative) A 06/07/25 12:22 Urine Glucose (UA) Negative (Normal) 06/07/25 12:22 Urine Ketones Negative (Negative) 06/07/25 12:22 Urine Blood Non-haemolysed trace (Negative) 06/07/25 12:22 Urine Nitrate Negative (Negative) 06/07/25 12:22 Urine Bilirubin Negative (Negative) 06/07/25 12:22 Urine Urobilinogen 1.0 mg/dL (Negative) 06/07/25 12:22 Ur Leukocyte Esterase Negative (Negative) 06/07/25 12:22 Urine RBC 0-2 /hpf (0-2) 06/07/25 12:22 Urine WBC 0-5 /hpf (0-5) 06/07/25 12:22 Ur Squamous Epith Cells 0-5 /hpf (0-5) 06/07/25 12:22 Amorphous Sediment Not Reportable 06/07/25 12:22 Urine Bacteria Trace /hpf (NONE) 06/07/25 12:22 Hyaline Casts 0.40 /lpf 06/07/25 12:22 Urine Opiates Screen Negative ng/mL (Negative) 06/08/25 12:22 Ur Barbiturates Screen Negative ng/mL (Negative) 06/08/25 12:22 Ur Phencyclidine Scrn Negative ng/mL (Negative) 06/08/25 12:22 Ur Amphetamines Screen Negative ng/mL (Negative) 06/08/25 12:22 U Benzodiazepines Scrn Negative ng/mL (Negative) 06/08/25 12:22 Urine Cocaine Screen Negative ng/mL (Negative) 06/08/25 12:22 U Marijuana (THC) Screen Positive ng/mL (Negative) H 06/08/25 12:22 Ethyl Alcohol < 10 mg/dL (0-10) 06/08/25 16:44 Influenza A (PCR) Negative (Negative) 06/07/25 11:14 Influenza Type B (PCR) Negative (Negative) 06/07/25 11:14 RSV (PCR) Negative (Negative) 06/07/25 11:14 SARS-CoV-2 (PCR) Negative (Negative) 06/07/25 11:14 Vitals Last Vital Signs Temp 97.5 F L 06/09/25 08:13 Pulse 72 06/09/25 08:13 Resp 16 06/09/25 08:13 BP 175/80 06/09/25 08:13 Pulse Ox 97 06/09/25 08:13 O2 Del Method Room Air 06/09/25 04:00 Discharge Plan Discharge Patient Disposition: Home Condition: Stable Prescriptions: New pantoprazole 40 mg tablet,delayed release (DR/EC) 40 mg PO BID Qty: 90 0RF nicotine 21 mg/24 hr Patch 24 Hour 1 patch transdermal DAILY PRN (Reason: Nicotine Cravings) Qty: 90 0RF Continued calcium carbonate [Calcium 500] 500 mg calcium (1,250 mg) tablet,chewable 500 mg PO DAILY multivitamin Tablet 1 tab PO DAILY sumatriptan succinate [Imitrex] 50 mg tablet See Rx Instructions PO .COMPLEX Rx Instructions: Take 1 tablet at onset of headache; if no relief may repeat 1 tablet after at least 2 hrs; max = 4 tabs/24 hr. (DME) sole supports See Rx Instructions .Route .MEDSUPPLY Qty: 1 0RF Rx Instructions: As directed albuterol sulfate 90 mcg/actuation HFA aerosol inhaler 1 inh inhalation QID PRN (Reason: shortness of breath or wheezing) Qty: 6.7 0RF oxybutynin chloride 15 mg tablet extended release 24hr 15 mg PO DAILY Qty: 90 3RF atorvastatin [Lipitor] 40 mg tablet 40 mg PO DAILY Qty: 90 3RF clobetasol 0.05 % ointment 1 applic topical BID 14 Days Qty: 45 1RF Rx Instructions: for two weeks nystatin 100,000 unit/gram powder 1 applic topical BID PRN (Reason: apply to irritated area under abdomen) Qty: 30 1RF alprazolam 0.5 mg tablet 0.5 mg PO BID PRN (Reason: Anxiety) Qty: 60 2RF Cosentyx Pen (2 Pens) 150 mg/mL pen injector 300 mg SUBCUT .[id number] Qty: 2 5RF Cosentyx Pen 150 mg/mL pen injector See Rx Instructions SUBCUT .COMPLEX Qty: 5 0RF Rx Instructions: Loading dose of 150mg SQ at week 0,1,2,3,4, then will be 300mg Q4 weeks for maintenance SUBCUT; morphine 15 mg tablet extended release 15 mg PO Q8H propranolol 60 mg capsule,extended release 24 hr 60 mg PO DAILY venlafaxine 150 mg capsule,extended release 24hr 150 mg PO DAILY leflunomide 20 mg tablet 20 mg PO DAILY triamcinolone acetonide 0.1 % cream 1 applic topical DAILY PRN (Reason: Skin Irritation) amlodipine 10 mg tablet 10 mg PO DAILY tizanidine 4 mg capsule 4 mg PO DAILY PRN (Reason: muscle spasticity) losartan-hydrochlorothiazide 100-12.5 mg tablet 1 tab PO DAILY Discontinued meloxicam 15 mg tablet 15 mg PO DAILY Qty: 90 3RF Discharge Order = DC NOW: Discharge Order (Routine); Ordered 06/09/25 Ordered By: Leonardo Smith Referrals: Triston Austin DO [Physician, Orthopedics] - 2 weeks Remi Kitcehn MD [Primary Care Provider, Family Practice] - 4-7 days Discharge Diet: Regular Patient Instructions: Altered Mental Status (ED), Opioid Safety, Patient Portal & Teresa Instructions Activity Restrictions/Additional Instructions: Discontinue meloxicam and please avoid NSAIDs as they may cause gastritis and/or ulcers. Avoid any alcohol. Be aware of hyperemesis syndrome that could be triggered by cannabinoid products. You are started on pantoprazole due to gastritis, please follow-up with primary provider for reassessment. Seek referral for further assessment by EGD and colonoscopy. Follow-up with orthopedic surgery with regards to severe central spinal stenosis with T12-L1 disc extrusion, as well as moderate central stenosis L1-2, and moderate bilateral L5-S1 foraminal narrowing worse on the right. As discussed, seek medical attention in case of any worsening or new concerning symptoms. Discharge Attestations Time Spent in Discharge Care*: greater than 30 min Quality Metrics Clinical Quality Measures [ No reported AMI, CVA or VTE this stay] Coding Level of Care Code 17755 Total time (in minutes) for Discharge: 50 Diagnoses Acute metabolic encephalopathy G93.41 Gastroenteritis K52.9 Colitis K52.9 Dehydration E86.0 Acute on chronic back pain M54.9; G89.29 Tobacco use disorder F17.200 Mixed hyperlipidemia E78.2 Hyperlipidemia type: mixed hyperlipidemia Primary hypertension I10 Hypertension type: primary hypertension
[2025-06-09 10:47] VITALS: BP 175/80; PULSE 72; RESP 16; TEMP 36.4; O2SAT 97
== END 2025-06-09 10:52 | disposition home or self-care (01) | DRG 391 ==
LOC: ER 15:13 → MEDSURG 15:47
PROVIDERS: Admitting Provider Student in an Organized Health Care Education/Training Program; Emergency Provider Emergency Medicine; PCP Family Medicine; Visit Provider Internal Medicine
DX: K52.9 Noninfective gastroenteritis and colitis, unspecified (principal); G93.41 Metabolic encephalopathy; E86.0 Dehydration; G89.29 Other chronic pain; M54.9 Dorsalgia, unspecified; E78.2 Mixed hyperlipidemia; I10 Essential (primary) hypertension; E87.6 Hypokalemia; L40.59 Other psoriatic arthropathy; F32.9 Major depressive disorder, single episode, unspecified; F41.9 Anxiety disorder, unspecified; F17.210 Nicotine dependence, cigarettes, uncomplicated; Z98.1 Arthrodesis status; M48.061 Spinal stenosis, lumbar region without neurogenic claudication; M51.24 Other intervertebral disc displacement, thoracic region; M51.26 Other intervertebral disc displacement, lumbar region
CPT/HCPCS: 36415; 70450; 71045; 72158; 74177; 80053; 80061; 80306; 80307; 81001; 82140; 82803; 83690; 83735; 84425; 84443; 85025; 87040; 87637; 93005; 96372; 97161; 99285; A9577; J1650; J2470; J3480; J7030; J9999